=== PATIENT | male | born 1965 | race Caucasian/White ===

== ENCOUNTER 2019-05-18 08:13 | Outpatient (CLI) | payer BC, SELFPAY | END 2019-05-18 08:14 | disposition home or self-care (01) | LOC: ONCMED 08:17 | PROVIDERS: Family Provider Family Medicine; PCP Family Medicine; Visit Provider Internal Medicine Hematology & Oncology | DX: Z45.2 Encounter for adjustment and management of vascular access device (principal) | CPT/HCPCS: 96523 ==

== ENCOUNTER 2019-06-25 09:04 | Outpatient (CLI) | payer BC, SELFPAY | END 2019-06-25 09:05 | disposition home or self-care (01) | LOC: ONCMED 09:06 | PROVIDERS: Family Provider Family Medicine; PCP Family Medicine; Visit Provider Internal Medicine Hematology & Oncology | DX: Z45.2 Encounter for adjustment and management of vascular access device (principal) | CPT/HCPCS: 96523 ==

== ENCOUNTER 2019-08-13 15:53 | Outpatient (CLI) | payer BC, SELFPAY ==
[2019-08-13 18:24] LABS: Carcinoembryonic Antigen 0.7 ng/mL (0.0-4.7)
[2019-08-13 18:35] LABS: Alanine Aminotransferase 31 U/L (0-41); Albumin Level 4.6 g/dL (3.5-5.2); Alkaline Phosphatase 67 IU/L (40-130); Aspartate Amino Transferase 23 U/L (0-40); Blood Urea Nitrogen 13 mg/dL (6-20); Calcium 9.5 mg/dL (8.5-10.5); Carbon Dioxide 23 mmol/L (22-29); Chloride 98 mmol/L (98-107); Glomerular Filtration Rate 77.9 mL/min (90-130); Glucose 176 mg/dL (65-115); Osmolality Calculated 282 mOsm/kg (285-295); Sodium 136 mmol/L (136-145); Total Bilirubin 0.4 mg/dL (0.15-1.2); Total Protein 7.6 g/dL (6.6-8.7)
[2019-08-13 22:30] LABS: Basophils % 0.5 %; Eosinophils % 0.8 %; Hematocrit 43.8 % (42.0-52.0); Hemoglobin 14.4 g/dL (11.7-16.6); Lymphocytes % 26.5 %; Mean Corpuscular HGB Conc 32.9 g/dL (30.0-36.0); Mean Corpuscular Hemoglobin 31.2 pg (28.0-34.0); Mean Corpuscular Volume 94.8 fL (80-94); Mean Platelet Volume 10.5 fL (7.4-10.4); Monocytes # 0.3 10^3/uL (0.2-0.9); Monocytes % 8.9 %; Neutrophils # 2.4 10^3/uL (1.8-7.7); Nucleated Red Blood Cells % 0 %; Platelet Count 233 10^3/cmm (130-400); Red Blood Count 4.62 10^6/uL (4.1-5.3); Red Cell Distribution Width 12.5 % (12.1-15.1); White Blood Count 3.8 10^3/uL (4.0-10.0)
== END 2019-08-13 15:54 | disposition home or self-care (01) ==
PROVIDERS: Family Provider Family Medicine; PCP Family Medicine; Visit Provider Internal Medicine Hematology & Oncology
DX: C20 Malignant neoplasm of rectum (principal); Z45.2 Encounter for adjustment and management of vascular access device
CPT/HCPCS: 36415; 80053; 82378; 85025; 96523

== ENCOUNTER 2019-11-08 09:04 | Outpatient (CLI) | payer BC, SELFPAY ==
[2019-11-08 09:43] LABS: Basophils % 0.5 %; Eosinophils # 0.1 10^3/uL (0.0-0.8); Eosinophils % 1.1 %; Hematocrit 43.1 % (42.0-52.0); Hemoglobin 14.1 g/dL (11.7-16.6); Mean Corpuscular HGB Conc 32.7 g/dL (30.0-36.0); Mean Corpuscular Hemoglobin 31.2 pg (28.0-34.0); Mean Corpuscular Volume 95.4 fL (80-94); Mean Platelet Volume 9.5 fL (7.4-10.4); Monocytes # 0.3 10^3/uL (0.2-0.9); Monocytes % 6.8 %; Neutrophils % 68.4 %; Nucleated Red Blood Cells % 0 %; Platelet Count 209 10^3/cmm (130-400); Red Blood Count 4.52 10^6/uL (4.1-5.3); Red Cell Distribution Width 12.8 % (12.1-15.1); White Blood Count 4.4 10^3/uL (4.0-10.0)
[2019-11-08 10:09] LABS: Carcinoembryonic Antigen 0.9 ng/mL (0.0-4.7)
[2019-11-08 10:21] LABS: Alanine Aminotransferase 37 U/L (0-41); Albumin Level 4.4 g/dL (3.5-5.2); Alkaline Phosphatase 66 IU/L (40-130); Anion Gap 16.3 (5-19); Aspartate Amino Transferase 24 U/L (0-40); Blood Urea Nitrogen 14 mg/dL (6-20); Calcium 9.2 mg/dL (8.5-10.5); Carbon Dioxide 25 mmol/L (22-29); Chloride 99 mmol/L (98-107); Glomerular Filtration Rate 100.4 mL/min (90-130); Glucose 243 mg/dL (65-115); Osmolality Calculated 286 mOsm/kg (285-295); Potassium 4.3 mmol/L (3.5-5.1); Sodium 136 mmol/L (136-145); Total Bilirubin 0.3 mg/dL (0.15-1.2); Total Protein 7.4 g/dL (6.6-8.7)
--- NOTE | 2019-11-08 11:23 | ONC FU_ITS ---
Dr. Jones follow up note Patient: Pedro Soliman Unit #: [id number]: [id number] Dicatated By: Cassandra Jones M.D.Date of Visit:Nov 08, 2019 Onc Med Follow-up/Prog Note History of Present Illness: Mr. Soliman is a 54 -year-old gentleman who was recently diagnosed with rectal polyp. He did have a biopsy of the polyp on 07/04/2017. This showed focal high-grade dysplasia and microscopic focus of invasion. CT scan of chest abdomen pelvis done on 07/04/2017 showed mass lesion that appeared locally confined to the rectum. He did see Dr Efrem Lozano in [place] and subsequently underwent trans-anal excisional biopsy/polypectomy which showed adenocarcinoma high-grade, with trans- mural invasion into perirectal adipose tissue and lymphovascular invasion. The margins clear but distance of invasive carcinoma from closest deep margin was 2 mm. no loss of expression of MMR proteins. Mr Soliman has been offered concurrent therapy with Xeloda and daily radiation. He began his first week of treatment on 09/10/2017. He completed his last radiation and Xeloda treatment on 01/10/2018 He was evaluated by colorectal surgeon at [facility] regarding post chemoradiation evaluation of rectal CA. As per his evaluation there is a no evidence of disease, considering patient's age adjuvant chemotherapy with FOLFOX was recommended along with observation and follow-up MRI scan of pelvis every 3-4 months so patient was started on adjuvant chemotherapy with FOLFOX ???12 on 02/06/2018 and completed on 07/31/18 MRI scan of pelvis done in February 2018 at [facility], as per patient it was normal. 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 MRI of the pelvis from [place] on 11/14/2018 reveals no evidence of recurrent tumor. Recently developed left pelvic pain for which he underwent sigmoidoscopy at [facility] in the last week of January 2019 and done on 02/14/2019 he underwent MRI scan of pelvis which showed no evidence of recurrence of rectal neoplasm. At that time patient was referred to chiropractor for evaluation now left hip pain is improving. Came for follow-up, as per patient last week he did develop left flank pain, went to see his PMD who ordered a renal ultrasound on November 05, 2019 which was a normal study, as per patient he was told at that he has pinched nerve or developing shingles, so he was started on acyclovir, which he is taking now. Also complaining of skin being very sensitive to touch and did notice some rash but no blisters. Denies any melena or hematochezia denies any diarrhea or constipation denies any abdominal pain. As per patient he underwent MRI scan of pelvis and colonoscopy in June 2019 at [place] at that time he was told there was no abnormality seen now he is scheduled for repeat MRI scan of pelvis and colonoscopy on November 22, 2019 at [facility]. Patient denies any fever chills denies nausea or vomiting or jaundice denies any skin rash, denies any trauma to his back. Denies any lower extremity numbness or weakness. Medications: C-1000 1 (1000 mg) Tablet Oral daily, Lisinopril 1 (30 mg) Tablet Oral daily, Vitamin B12 1 Tablet Oral daily Allergies: No Known Allergies. Review of Systems: Review of Systems is not available for this patient. Vital Signs: Performed on Nov 08, 2019 10:51 Height - 70.00 in Temperature - 99.1 F (HIGH) Pulse - 77 /min Respiration - 18 /min BP - 136/92 mm(hg) O2 Sat - 96 % Pain - 0 Performance Status: 0 - Fully active, able to carry on all predisease activities without restrictions. (ECOG) Physical Examination: ENMT - No mouth sores, no thrush, no jaundice, Respiratory - Lungs are clear, Cardiovascular - Regular rate and rhythm of heart, Abdomen - Soft, bowel sounds present, Left flank shows macular rash but no blisters and skin is sensitive to touch, Extremities - No visible edema. Lab/Imaging: Test performed on Aug 13, 2019 16:10 Sodium 136 mmol/L Potassium 4.0 mmol/L Chloride 98 mmol/L CO2 23 mmol/L Anion Gap 19.0 BUN 13 mg/dL Creatinine 1.0 mg/dL Cr Clearance (Est) 118.6500 mL/min eGFR 77.9 mL/min Glucose 176 mg/dL Calcium 9.5 mg/dL Protein, Total 7.6 g/dL Albumin 4.6 g/dL Globulin 3.0 g/dL Bilirubin, Total 0.4 mg/dL ALT (SGPT) 31 U/L AST (SGOT) 23 U/L Alkaline Phosphatase 67 IU/L WBC 3.8 10 3/uL RBC 4.62 10 6/uL HGB 14.4 g/dL HCT 43.8 % MCV 94.8 fL MCH 31.2 pg MCHC 32.9 g/dL RDW 12.5 % Platelet Count 233 10 3/cmm MPV 10.5 fL Neutrophils 2.4 10 3/uL Lymphocytes 1.0 10 3/uL Monocytes 0.3 10 3/uL Eosinophils 0.0 10 3/uL Basophils 0.0 10 3/uL Neutrophil % 63.0 % Lymphocyte % 26.5 % Monocyte % 8.9 % Eosinophil % 0.8 % Basophils % 0.5 % CEA 0.7 ng/mL Impression: 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 Postop urinary retention s/p Allison cath now removed-retention resolved. s/p concurrent therapy with Xeloda and radiation therapy. 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 No lymphadenopathy New diffuse bone marrow heterogenicity, which is likely related to red bone marrow reconversion. Mr Barroso recently had elevation of his creatinine after having a followup colonoscopy and MRI at [place]. His creatinine has returned to normal today. Plan: Discussed with patient regarding his labs white blood count 4.4 hemoglobin 14.1 crit 43.1 platelets 209,000 CMP within normal limit except glucose 243 Clinically, patient is doing reasonably well but concerned about left flank pain, which is under control with Tylenol and Motrin prescribed by his PMD and also taking acyclovir for possible shingles as his skin and left flank area is sensitive and he did notice some skin lesions but no blisters. Patient is being followed by PMD regarding his left flank pain or discomfort. Patient is scheduled to go to [facility] on November 22, 2023 follow-up MRI scan of pelvis as well as colonoscopy. His lab work-up looks reasonable and he will return to clinic in 4 months with CBC CMP Signed By: Cassandra Jones M.D. <<Signature on File>>
== END 2019-11-08 09:05 | disposition home or self-care (01) ==
PROVIDERS: PCP Family Medicine; Visit Provider Internal Medicine Hematology & Oncology
DX: Z08 Encounter for follow-up examination after completed treatment for malignant neoplasm (principal); Z85.048 Personal history of other malignant neoplasm of rectum, rectosigmoid junction, and anus; R10.9 Unspecified abdominal pain; K75.81 Nonalcoholic steatohepatitis (NASH); Z92.3 Personal history of irradiation; Z92.21 Personal history of antineoplastic chemotherapy; Z79.899 Other long term (current) drug therapy
CPT/HCPCS: 80053; 82378; 85025; G0463

== ENCOUNTER → 2020-02-20 17:39 | Outpatient (BNVA) | payer BC, SELFPAY | PROVIDERS: PCP Family Medicine; Visit Provider Dermatology | DX: D48.9 Neoplasm of uncertain behavior, unspecified (principal) | CPT/HCPCS: 88304 ==

== ENCOUNTER 2020-03-11 15:29 | Outpatient (CLI) | payer BC, SELFPAY ==
[2020-03-11 15:58] LABS: Basophils % 0.7 %; Eosinophils # 0.1 10^3/uL (0.0-0.8); Eosinophils % 1.1 %; Hematocrit 43.5 % (42.0-52.0); Hemoglobin 14.2 g/dL (11.7-16.6); Lymphocytes # 1.4 10^3/uL (0.8-4.8); Lymphocytes % 30.9 %; Mean Corpuscular HGB Conc 32.6 g/dL (30.0-36.0); Mean Corpuscular Hemoglobin 30.7 pg (28.0-34.0); Mean Platelet Volume 9.8 fL (7.4-10.4); Monocytes # 0.4 10^3/uL (0.2-0.9); Monocytes % 8.3 %; Neutrophils # 2.63 10^3/uL (1.8-7.7); Neutrophils % 58.8 %; Nucleated Red Blood Cells % 0 %; Platelet Count 239 10^3/cmm (130-400); Red Blood Count 4.63 10^6/uL (4.1-5.3); Red Cell Distribution Width 12.8 % (12.1-15.1); White Blood Count 4.5 10^3/uL (4.0-10.0)
[2020-03-11 16:26] LABS: Alanine Aminotransferase 30 U/L (0-41); Albumin Level 4.5 g/dL (3.5-5.2); Alkaline Phosphatase 71 IU/L (40-130); Aspartate Amino Transferase 19 U/L (0-40); Blood Urea Nitrogen 14 mg/dL (6-20); Calcium 9.2 mg/dL (8.5-10.5); Carbon Dioxide 28 mmol/L (22-29); Chloride 101 mmol/L (98-107); Glomerular Filtration Rate 87.6 mL/min (90-130); Glucose 131 mg/dL (65-115); Osmolality Calculated 286 mOsm/kg (285-295); Sodium 137 mmol/L (136-145); Total Bilirubin 0.3 mg/dL (0.15-1.2); Total Protein 7.5 g/dL (6.6-8.7)
== END 2020-03-11 15:30 | disposition home or self-care (01) ==
LOC: ONCMED 15:31
PROVIDERS: PCP Family Medicine; Visit Provider Internal Medicine Hematology & Oncology
DX: C20 Malignant neoplasm of rectum (principal)
CPT/HCPCS: 36415; 80053; 85025

== ENCOUNTER 2020-03-13 05:38 | Outpatient (CLI) | payer BC, SELFPAY ==
--- NOTE | 2020-03-13 08:49 | ONC FU_ITS ---
Dr. Jones follow up note Patient: Pedro Soliman < Unit #: [id number]: 1965 Dicatated By: Cassandra Jones M.D.Date of Visit:Mar 13, 2020 Onc Med Follow-up/Prog Note History of Present Illness: Mr. Soliman is a 54 -year-old gentleman who was recently diagnosed with rectal polyp. He did have a biopsy of the polyp on 07/04/2017. This showed focal high-grade dysplasia and microscopic focus of invasion. CT scan of chest abdomen pelvis done on 07/04/2017 showed mass lesion that appeared locally confined to the rectum. He did see Dr Efrem Lozano in [place] and subsequently underwent trans-anal excisional biopsy/polypectomy which showed adenocarcinoma high-grade, with trans- mural invasion into perirectal adipose tissue and lymphovascular invasion. The margins clear but distance of invasive carcinoma from closest deep margin was 2 mm. no loss of expression of MMR proteins. Mr Soliman has been offered concurrent therapy with Xeloda and daily radiation. He began his first week of treatment on 09/10/2017. He completed his last radiation and Xeloda treatment on 01/10/2018 He was evaluated by colorectal surgeon at [facility] regarding post chemoradiation evaluation of rectal CA. As per his evaluation there is a no evidence of disease, considering patient's age adjuvant chemotherapy with FOLFOX was recommended along with observation and follow-up MRI scan of pelvis every 3-4 months so patient was started on adjuvant chemotherapy with FOLFOX ???12 on 02/06/2018 and completed on 07/31/18 MRI scan of pelvis done in February 2018 at [facility], as per patient it was normal. 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 MRI of the pelvis from [place] on 11/14/2018 reveals no evidence of recurrent tumor. Recently developed left pelvic pain for which he underwent sigmoidoscopy at [facility] in the last week of January 2019 and done on 02/14/2019 he underwent MRI scan of pelvis which showed no evidence of recurrence of rectal neoplasm. At that time patient was referred to chiropractor for evaluation now left hip pain is improving. As per patient he underwent MRI scan of pelvis and colonoscopy in June 2019 at [place] at that time he was told there was no abnormality seen , And then follow-up MRI scan of pelvis and limited endoscopy was done in November 2019 at [place], as per patient there was no abnormality seen and now scheduled for MRI scan of pelvis and endoscopy In April 2020 at [place] Came for follow-up, denies any specific complaints, no fever chills, no nausea or vomiting, no diarrhea or constipation, no abdominal pain, no jaundice, appetite is good, patient missed couple of monthly port maintenance. Medications: C-1000 1 (1000 mg) Tablet Oral daily, Lisinopril 1 (30 mg) Tablet Oral daily Allergies: No Known Allergies. Review of Systems: Constitutional - Energy level is good. Appetite is fair and weight is stable. No fever, chills, hot flashes, or night sweats, ENMT - Patient has no sinus congestion/drainage. No mouth sores. No sore throat or difficulty swallowing, Hematologic/Lymphatic - No abnormal bruising or bleeding, Respiratory - No shortness of breath. No cough. No pleuritic pain or hemoptysis, Cardiovascular - No angina pain. No palpitations, Gastrointestinal - No nausea or vomiting. No heartburn or acid reflux. No diarrhea or constipation. No blood in the stool or black stool, Genitourinary (M) - No dysuria or hematuria. No urinary frequency. No urgency or incontinence, Musculoskeletal - Positive for back pain, Integumentary - denies skin rash or lesions, Neurologic - No headache or dizziness. No numbness/paresthesias or other focal neurologic symptoms, Psychiatric - No anxiety or depression. No insomnia. Vital Signs: Performed on Mar 13, 2020 08:08 Height - 70.00 in Weight - 223.6 lbs (HIGH) BSA - 2.19 sq.m BMI - 32.08 (HIGH) Temperature - 98.1 F (LOW) Pulse - 60 /min Respiration - 18 /min BP - 158/97 mm(hg) (HIGH) O2 Sat - 98 % Pain - 0 Performance Status: 0 - Fully active, able to carry on all predisease activities without restrictions. (ECOG) Physical Examination: ENMT - No mouth sores, no thrush, no jaundice, Respiratory - Lungs are clear to auscultation, Cardiovascular - Regular rate and rhythm of heart, Abdomen - Soft, bowel sounds present no focal tenderness, Extremities - No visible edema. Lab/Imaging: Test performed on Mar 11, 2020 15:40 Sodium 137 mmol/L Potassium 4.0 mmol/L Chloride 101 mmol/L CO2 28 mmol/L Anion Gap 12.0 BUN 14 mg/dL Creatinine 0.9 mg/dL Cr Clearance (Est) 130.3100 mL/min eGFR 87.6 mL/min Glucose 131 mg/dL Osmolality - Calculated 286 mOsm/kg Calcium 9.2 mg/dL Protein, Total 7.5 g/dL Albumin 4.5 g/dL Globulin 3.0 g/dL Bilirubin, Total 0.3 mg/dL ALT (SGPT) 30 U/L AST (SGOT) 19 U/L Alkaline Phosphatase 71 IU/L WBC 4.5 10 3/uL RBC 4.63 10 6/uL HGB 14.2 g/dL HCT 43.5 % MCV 94.0 fL MCH 30.7 pg MCHC 32.6 g/dL RDW 12.8 % Platelet Count 239 10 3/cmm MPV 9.8 fL Neutrophils 2.63 10 3/uL Lymphocytes 1.4 10 3/uL Monocytes 0.4 10 3/uL Eosinophils 0.1 10 3/uL Basophils 0.0 10 3/uL Neutrophil % 58.8 % Lymphocyte % 30.9 % Monocyte % 8.3 % Eosinophil % 1.1 % Basophils % 0.7 % NRBC % 0 % Test performed on Nov 08, 2019 09:20 CEA 0.9 ng/mL Impression: 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 Postop urinary retention s/p Allison cath now removed-retention resolved. s/p concurrent therapy with Xeloda and radiation therapy. 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 No lymphadenopathy New diffuse bone marrow heterogenicity, which is likely related to red bone marrow reconversion. Mr Chio recently had elevation of his creatinine after having a followup colonoscopy and MRI at [place]. His creatinine has returned to normal today. Plan: Discussed with patient regarding his labs from March 11, 2020 shows white blood count 4.5 hemoglobin 14.2 hematocrit 43.5 platelets 239,000 CMP within normal limits Clinically, patient is doing well with no signs symptom suggestive of recurrence of disease, now being followed up with MRI scan of pelvis and lymphatic endoscopy at [place] on 6 monthly basis, as per patient his last MRI scan of pelvis and endoscopy done in November 2019 showed no evidence of disease and now scheduled for follow-up MRI scan of pelvis and endoscopy in April 2020. His follow-up lab shows normal values. Patient was advised to continue with monthly port maintenance and if his follow-up MRI scan/endoscopy done in April shows no abnormality, then he can consider port removal if he wishes. Return to clinic in 6 months with CBC CMP. Signed By: Cassandra Jones M.D. <<Signature on File>>
== END 2020-03-13 05:39 | disposition home or self-care (01) ==
LOC: ONCMED 05:39
PROVIDERS: PCP Family Medicine; Visit Provider Internal Medicine Hematology & Oncology
DX: Z08 Encounter for follow-up examination after completed treatment for malignant neoplasm (principal); Z85.048 Personal history of other malignant neoplasm of rectum, rectosigmoid junction, and anus; Z92.3 Personal history of irradiation; Z92.21 Personal history of antineoplastic chemotherapy
CPT/HCPCS: G0463

== ENCOUNTER 2020-09-11 09:11 | Outpatient (CLI) | payer BC, SELFPAY ==
[2020-09-11 09:48] LABS: Basophils % 0.4 %; Eosinophils % 0.4 %; Hematocrit 45.6 % (42.0-52.0); Hemoglobin 14.9 g/dL (11.7-16.6); Lymphocytes # 1.1 10^3/uL (0.8-4.8); Lymphocytes % 25.2 %; Mean Corpuscular HGB Conc 32.7 g/dL (30.0-36.0); Mean Corpuscular Hemoglobin 30.2 pg (28.0-34.0); Mean Corpuscular Volume 92.3 fL (80-94); Mean Platelet Volume 9.6 fL (7.4-10.4); Monocytes # 0.3 10^3/uL (0.2-0.9); Monocytes % 7.1 %; Neutrophils # 2.98 10^3/uL (1.8-7.7); Neutrophils % 66.5 %; Nucleated Red Blood Cells % 0 %; Platelet Count 231 10^3/cmm (130-400); Red Blood Count 4.94 10^6/uL (4.1-5.3); Red Cell Distribution Width 12.2 % (12.1-15.1); White Blood Count 4.5 10^3/uL (4.0-10.0)
[2020-09-11 10:02] LABS: Alanine Aminotransferase 26 U/L (0-41); Albumin Level 4.5 g/dL (3.5-5.2); Alkaline Phosphatase 63 IU/L (40-130); Anion Gap 14.2 (5-19); Aspartate Amino Transferase 18 U/L (0-40); Blood Urea Nitrogen 12 mg/dL (6-20); Calcium 8.7 mg/dL (8.5-10.5); Carbon Dioxide 25 mmol/L (22-29); Chloride 103 mmol/L (98-107); Globulin 2.9 g/dL (1.3-4.6); Glomerular Filtration Rate 116.7 mL/min (90-130); Glucose 143 mg/dL (65-115); Osmolality Calculated 288 mOsm/kg (285-295); Potassium 4.2 mmol/L (3.5-5.1); Sodium 138 mmol/L (136-145); Total Bilirubin 0.5 mg/dL (0.15-1.2); Total Protein 7.4 g/dL (6.6-8.7)
--- NOTE | 2020-09-12 08:02 | ONC FU_ITS ---
Dr. Jones follow up note Patient: Pedro Soliman Unit #: [id number]: 1965 Dicatated By: Cassandra Jones M.D.Date of Visit:September 11, 2020 Onc Med Follow-up/Prog Note History of Present Illness: Mr. Soliman is a 55 -year-old gentleman who was recently diagnosed with rectal polyp. He did have a biopsy of the polyp on 07/04/2017. This showed focal high-grade dysplasia and microscopic focus of invasion. CT scan of chest abdomen pelvis done on 07/04/2017 showed mass lesion that appeared locally confined to the rectum. He did see Dr Efrem Lozano in [place] and subsequently underwent trans-anal excisional biopsy/polypectomy which showed adenocarcinoma high-grade, with trans- mural invasion into perirectal adipose tissue and lymphovascular invasion. The margins clear but distance of invasive carcinoma from closest deep margin was 2 mm. no loss of expression of MMR proteins. Mr Soliman has been offered concurrent therapy with Xeloda and daily radiation. He began his first week of treatment on 09/10/2017. He completed his last radiation and Xeloda treatment on 01/10/2018 He was evaluated by colorectal surgeon at [facility] regarding post chemoradiation evaluation of rectal CA. As per his evaluation there is a no evidence of disease, considering patient's age adjuvant chemotherapy with FOLFOX was recommended along with observation and follow-up MRI scan of pelvis every 3-4 months so patient was started on adjuvant chemotherapy with FOLFOX ???12 on 02/06/2018 and completed on 07/31/18 MRI scan of pelvis done in February 2018 at [facility], as per patient it was normal. 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 MRI of the pelvis from [place] on 11/14/2018 reveals no evidence of recurrent tumor. Recently developed left pelvic pain for which he underwent sigmoidoscopy at [facility] in the last week of January 2019 and done on 02/14/2019 he underwent MRI scan of pelvis which showed no evidence of recurrence of rectal neoplasm. At that time patient was referred to chiropractor for evaluation now left hip pain is improving. As per patient he underwent MRI scan of pelvis and colonoscopy in June 2019 at [place] at that time he was told there was no abnormality seen , And then follow-up MRI scan of pelvis and limited endoscopy was done in November 2019 at [place], as per patient there was no abnormality seen As per patient he went to [place] in April 2020 and had a complete colonoscopy and the polyp was removed and biopsy report came back negative and also had MRI scan of the pelvis and that showed no recurrence of disease. Now scheduled for sigmoidoscopy and MRI scan of pelvis in October 2020 Came for follow-up, denies any specific complaints, no fever chills, no nausea or vomiting, no diarrhea constipation, no melena or hematochezia, no jaundice, Patient is also complaining of persistent posterior medial thigh pain/discomfort, initially off and on even before he underwent treatment for low rectal cancer which include neoadjuvant chemoradiation and transanal resection. But recently this pain/discomfort is somewhat more progressive and as per patient this pain did improve after resection of low rectal malignancy but now somewhat progressive. Patient denies any lower back pain, denies any focal weakness denies any urine or stool incontinence. Medications: C-1000 1 (1000 mg) Tablet Oral daily, Lisinopril 1 (30 mg) Tablet Oral daily Allergies: No Known Allergies. Review of Systems: Review of Systems is not available for this patient. Vital Signs: Performed on September 11, 2020 14:44 Height - 70.00 in Weight - 223 lbs (LOW) BSA - 2.19 sq.m BMI - 32.00 (HIGH) Temperature - 98.6 F Pulse - 114 /min (HIGH) Respiration - 18 /min BP - 137/98 mm(hg) O2 Sat - 97 % Pain - 0 Fatigue - 0 Performance Status: 0 - Fully active, able to carry on all predisease activities without restrictions. (ECOG) Physical Examination: ENMT - No mouth sores, no thrush, no jaundice, Respiratory - Lungs are clear to auscultation, Cardiovascular - Regular rate and rhythm of heart, Abdomen - Soft, bowel sounds present, Extremities - No visible edema. Lab/Imaging: Most recent lab results are not available for this patient. 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 Postop urinary retention s/p Allison cath now removed-retention resolved. s/p concurrent therapy with Xeloda and radiation therapy. 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 No lymphadenopathy New diffuse bone marrow heterogenicity, which is likely related to red bone marrow reconversion. Mr Barroso recently had elevation of his creatinine after having a followup colonoscopy and MRI at [place].Colonoscopy/MRI pelvis done in April 2020 at [place] showed no evidence of recurrence of disease, one polyp was removed and as per patient it was benign. Plan: Discussed with patient regarding his labs white blood count 4.5 hemoglobin 14.9 hematocrit 45.6 platelets 231,000 CMP within normal limits Clinically, patient doing well with no new signs symptom suggestive of recurrence of disease, patient is being followed at GI surgical oncologist at [place] with follow-up endoscopic exam as well as MRI scan of pelvis as per patient his last colonoscopy and MRI pelvis was done in April 2020 which showed no evidence of disease and next 1 is scheduled in October 2020. And his lab work-up done today is within normal range. Other concern patient has this persistent/progressive medial posterior thigh pain/discomfort, as per patient this was there even before surgery but at that time he was off and on and it did improve after transanal resection of low rectal malignancy but now again become somewhat progressive, patient said he will discuss with his surgeon at [place] as he was concerned about recurrence of disease although his evaluation done in April 2020 did not show any evidence of recurrence of disease and patient has no signs or symptoms suggestive of progressive disease. Patient return to clinic in 6 months with CBC CMP in the meantime he will continue monthly port maintenance Signed By: Cassandra Jones M.D. <<Signature on File>>
== END 2020-09-11 09:12 | disposition home or self-care (01) ==
LOC: ONCMED 09:13
PROVIDERS: PCP Family Medicine; Visit Provider Internal Medicine Hematology & Oncology
DX: C20 Malignant neoplasm of rectum (principal); K75.81 Nonalcoholic steatohepatitis (NASH); R33.9 Retention of urine, unspecified; G62.0 Drug-induced polyneuropathy; T45.1X5A Adverse effect of antineoplastic and immunosuppressive drugs, initial encounter; D53.9 Nutritional anemia, unspecified; K62.1 Rectal polyp; Z79.899 Other long term (current) drug therapy; Z92.21 Personal history of antineoplastic chemotherapy; Z92.3 Personal history of irradiation
CPT/HCPCS: 36415; 80053; 85025; 99214

== ENCOUNTER 2021-02-16 05:55 | Day surgery (SDC) | payer BC, SELFPAY ==
[2021-02-13 13:40] VITALS: BMI 31.5
[2021-02-16 06:08] VITALS: BP 142/92; PULSE 68; RESP 17; TEMP 36.3; O2SAT 96
[2021-02-16 06:48] VITALS: BP 153/91; PULSE 55; RESP 16; O2SAT 99
--- NOTE | 2021-02-16 06:48 | W.PM.OPSUD ---
Surgery/Procedure H&P Update DATE OF PROCEDURE: February 16, 2021 DATE H&P PERFORMED: 02/09/21 H&P UPDATE INFORMATION: I have reviewed H&P completed within last 30 days, I have examined patient prior to procedure and No changes to prior documentation PREOP DIAGNOSIS: Port removal PLANNED PROCEDURE: Operation Date: 02/16/21 07:00 Proposed Procedures p Portacath Removal(Not Applicable) - Sudeep Dumont MD
[2021-02-16 07:00] VITALS: BP 157/95; PULSE 55; RESP 16; O2SAT 100
[2021-02-16 07:05] VITALS: BP 149/89; PULSE 64; RESP 16; O2SAT 99
[2021-02-16 07:10] VITALS: BP 150/86; PULSE 58; RESP 14; O2SAT 99
--- NOTE | 2021-02-16 07:13 | PM.OP ---
Operative Report Date of procedure: February 16, 2021 Pre-op Diagnosis: Rectal cancer, requiring port removal Post-op diagnosis: same Procedure Done: Removal of Port-A-Cath from the left subclavian vein Pathology: none sent Surgeon: Sudeep Dumont Anesthesia: Local Condition: stable Disposition: PACU Procedure: Patient was taken to the operating room and her right chest was prepped and draped in a sterile manner. 20 mL of 1% lidocaine with 0.5% Marcaine was infiltrated around the MediPort and catheter in the left subclavian vein. Using a 15 blade the previous incision was opened, the subcutaneous tissue was divided using electrocautery and MediPort along the catheter was dissected free from the surrounding subcutaneous tissue and removed entirely. The wound was irrigated with saline, hemostasis ensured with electrocautery and subcutaneous tissue was approximated using 3-0 Vicryl suture and skin was closed using running subcuticular 4-0 Monocryl suture. The patient was transferred to the recovery room in stable condition.
[2021-02-16 07:15] VITALS: BP 114/75; PULSE 58; RESP 17; TEMP 36.3; O2SAT 97
== END 2021-02-16 07:25 | disposition home or self-care (01) ==
PROVIDERS: PCP Family Medicine; Visit Provider Surgery
PROC: (CPT 36589; principal; 2021-02-16 07:00)
DX: C20 Malignant neoplasm of rectum (principal); I10 Essential (primary) hypertension
CPT/HCPCS: 36590; J3490

== ENCOUNTER 2021-03-24 07:54 | Outpatient (CLI) | payer BC, SELFPAY ==
[2021-03-24 08:35] LABS: Basophils % 0.5 %; Eosinophils # 0.1 10^3/uL (0.0-0.8); Eosinophils % 1.2 %; Hematocrit 44.1 % (42.0-52.0); Hemoglobin 14.2 g/dL (11.7-16.6); Lymphocytes # 1.1 10^3/uL (0.8-4.8); Lymphocytes % 25.6 %; Mean Corpuscular HGB Conc 32.2 g/dL (30.0-36.0); Mean Corpuscular Volume 93.2 fl (80-94); Mean Platelet Volume 9.5 fL (7.4-10.4); Monocytes # 0.4 10^3/uL (0.2-0.9); Monocytes % 9.1 %; Neutrophils # 2.65 10^3/uL (1.8-7.7); Neutrophils % 63.4 %; Nucleated Red Blood Cells % 0 %; Platelet Count 200 10^3/cmm (130-400); Red Blood Count 4.73 10^6/uL (4.1-5.3); Red Cell Distribution Width 12.4 % (12.1-15.1); White Blood Count 4.2 10^3/uL (4.0-10.0)
[2021-03-24 08:51] LABS: Alanine Aminotransferase 23 U/L (0-41); Albumin Level 4.3 g/dL (3.5-5.2); Alkaline Phosphatase 65 IU/L (40-130); Anion Gap 12.7 (5-19); Aspartate Amino Transferase 15 U/L (0-40); Blood Urea Nitrogen 15 mg/dL (6-20); Calcium 8.4 mg/dL (8.5-10.5); Carbon Dioxide 26 mmol/L (22-29); Chloride 106 mmol/L (98-107); Globulin 2.6 g/dL (1.3-4.6); Glucose 132 mg/dL (65-115); Osmolality Calculated 293 mOsm/kg (285-295); Potassium 4.7 mmol/L (3.5-5.1); Sodium 140 mmol/L (136-145); Total Bilirubin 0.3 mg/dL (0.15-1.2); Total Protein 6.9 g/dL (6.6-8.7)
--- NOTE | 2021-03-24 15:26 | ONC FU_ITS ---
Dr. Jones follow up note Patient: Pedro Soliman Unit #: [id number]: 1965 Dicatated By: Cassandra Jones M.D.Date of Visit:Mar 24, 2021 Onc Med Follow-up/Prog Note History of Present Illness: Mr. Soliman is a 55 -year-old gentleman who was recently diagnosed with rectal polyp. He did have a biopsy of the polyp on 07/04/2017. This showed focal high-grade dysplasia and microscopic focus of invasion. CT scan of chest abdomen pelvis done on 07/04/2017 showed mass lesion that appeared locally confined to the rectum. He did see Dr Efrem Lozano in [place] and subsequently underwent trans-anal excisional biopsy/polypectomy which showed adenocarcinoma high-grade, with trans- mural invasion into perirectal adipose tissue and lymphovascular invasion. The margins clear but distance of invasive carcinoma from closest deep margin was 2 mm. no loss of expression of MMR proteins. Mr Soliman has been offered concurrent therapy with Xeloda and daily radiation. He began his first week of treatment on 09/10/2017. He completed his last radiation and Xeloda treatment on 01/10/2018 He was evaluated by colorectal surgeon at [facility] regarding post chemoradiation evaluation of rectal CA. As per his evaluation there is a no evidence of disease, considering patient's age adjuvant chemotherapy with FOLFOX was recommended along with observation and follow-up MRI scan of pelvis every 3-4 months so patient was started on adjuvant chemotherapy with FOLFOX ???12 on 02/06/2018 and completed on 07/31/18 MRI scan of pelvis done in February 2018 at [facility], as per patient it was normal. 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 MRI of the pelvis from [facility] [place] on 11/14/2018 reveals no evidence of recurrent tumor. Recently developed left pelvic pain for which he underwent sigmoidoscopy at [facility] in the last week of January 2019 and done on 02/14/2019 he underwent MRI scan of pelvis which showed no evidence of recurrence of rectal neoplasm. At that time patient was referred to chiropractor for evaluation now left hip pain is improving. As per patient he underwent MRI scan of pelvis and colonoscopy in June 2019 at [facility] at that time he was told there was no abnormality seen , And then follow-up MRI scan of pelvis and limited endoscopy was done in November 2019 at [facility] [place], as per patient there was no abnormality seen and now scheduled for MRI scan of pelvis and endoscopy In April 2020 at [facility] As per patient he went to [facility] in April 2020 and had a complete colonoscopy and the polyp was removed and biopsy report came back negative and also had MRI scan of the pelvis and that showed no recurrence of disease. Now scheduled for sigmoidoscopy and MRI scan of pelvis in October 2020 Came for follow-up, denies any specific complaints, no fever chills, no nausea or vomiting, no diarrhea constipation, no melena hematochezia no hemoptysis hematemesis, no abdominal pain, as per patient his rectal/anal pain has resolved, in November 2020, patient went to [facility] surgical oncology for follow-up, as per patient MRI scan of the pelvis and rectal exam was performed and there was no evidence of recurrence of disease, now scheduled to go back for evaluation in April 2021 Medications: C-1000 1 (1000 mg) Tablet Oral daily, Lisinopril 1 (30 mg) Tablet Oral daily Allergies: No Known Allergies. Review of Systems: Review of Systems is not available for this patient. Vital Signs: Performed on Mar 24, 2021 14:04 Height - 70.00 in Weight - 222 lbs (LOW) BSA - 2.18 sq.m BMI - 31.85 (HIGH) Temperature - 98.3 F (LOW) Pulse - 63 /min Respiration - 18 /min BP - 132/86 mm(hg) O2 Sat - 97 % Pain - 0 Fatigue - 2 Performance Status: 0 - Fully active, able to carry on all predisease activities without restrictions. (ECOG) Physical Examination: ENMT - Sinuses are nontender. No oral exudates, ulcers, masses, thrush or mucositis. Oropharynx clear. Tongue normal, Respiratory - Lungs are clear to auscultation, Cardiovascular - Regular rate and rhythm of heart, Abdomen - Soft, bowel sounds present, Extremities - No visible edema. Lab/Imaging: Most recent lab results are not available for this patient. 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 Postop urinary retention s/p Allison cath now removed-retention resolved. s/p concurrent therapy with Xeloda and radiation therapy. 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 No lymphadenopathy New diffuse bone marrow heterogenicity, which is likely related to red bone marrow reconversion. Mr Barroso recently had elevation of his creatinine after having a followup colonoscopy and MRI at [facility].Colonoscopy/MRI pelvis done in April 2020 at [facility] showed no evidence of recurrence of disease, one polyp was removed and as per patient it was benign. Plan: Discussed with patient regarding his labs white blood count 4.2 hemoglobin 14.2 hematocrit 44.1 platelets 200,000 CMP within normal limits except glucose 132 Clinically, patient is doing well with no new signs symptom suggestive of recurrence of disease, and November 2020 patient underwent MRI scan of the pelvis and rectal exam at [facility] [place] [facility], as per patient there is no evidence of recurrence of disease. And today's lab work-up is also within normal range, patient will return to clinic in July with CBC CMP and CEA. Signed By: Cassandra Jones M.D. <<Signature on File>>
== END 2021-03-24 07:55 | disposition home or self-care (01) ==
LOC: ONCMED 07:56
PROVIDERS: PCP Family Medicine; Visit Provider Internal Medicine Hematology & Oncology
DX: Z08 Encounter for follow-up examination after completed treatment for malignant neoplasm (principal); Z85.048 Personal history of other malignant neoplasm of rectum, rectosigmoid junction, and anus; K75.81 Nonalcoholic steatohepatitis (NASH); Z79.899 Other long term (current) drug therapy; Z92.21 Personal history of antineoplastic chemotherapy; Z92.3 Personal history of irradiation
CPT/HCPCS: 36415; 80053; 85025; 99214

== ENCOUNTER 2022-09-24 07:51 | Outpatient (CLI) | payer BC, SELFPAY ==
--- NOTE | 2022-09-24 08:01 | CT_ITS ---
WS: [id number] CT CHEST, ABDOMEN AND PELVIS WITH CONTRAST HISTORY: RECTAL CANCER TECHNIQUE: Contiguous 5 mm axial imaging performed through the chest, abdomen and pelvis with IV cont rast, oral contrast has been provided. Coronal and sagittal reformats chest. Coronal and sagittal ref ormats through the abdomen and pelvis. All CT scans at [facility] use at least one of these d ose optimization techniques: automated exposure control; mA and/or kV adjustment per patient size (in cludes targeted exams where dose is matched to clinical indication); or iterative reconstruction. CONTRAST: Omnipaque 350; 100 mL IV. DLP: 1180.55 mGy.cm COMPARISON: 11/14/2017 CT abdomen and pelvis. Chest CT: Lungs are well-aerated. 3 mm nodule at the LEFT lung base was also present in 2018. No susp icious masses or nodules. No pneumonia. Mild atherosclerosis aorta. Normal size aorta and pulmonary a rtery. No pericardial or pleural effusions. No mediastinal or hilar adenopathy. Negative chest wall. Abdomen CT: Normal size liver with diffuse moderate hepatic steatosis. No mass or metastatic lesions. Normal portal vein. Normal spleen. Normal pancreas. Prior cholecystectomy. No adrenal mass. No renal obstruction. There are bilateral cortical, too small to characterize hypodensities. No solid mass. M ajority of these hypodensities were also noted in 2018. Normal aorta. No ascites or adenopathy. Marian lly distended stomach and small bowel. No obstructive pattern. Normal appendix. Numerous diverticula in the descending and sigmoid colon. No acute diverticulitis. Mild diverticular burden. No rectal mas s. No perirectal or mesial rectal mass or soft tissue stranding. No pelvic adenopathy. Pelvic CT: No free fluid or adenopathy. Normally distended urinary bladder. No enhancing nodules. Nor mal prostate. No inguinal lymph nodes. No destructive bone lesions. CT/CT chest abdpel w/*[id number] IMPRESSION: 1. No evidence for metastatic disease or adenopathy within the chest, abdomen or pelvis. 2. No abnormality in the mesial rectal fat or inguinal lymph nodes. 3. Prior cholecystectomy. 4. Mild distal colon diverticulosis without acute diverticulitis.
[2022-09-24] MEDS: iohexol 350 mg/mL 500 mL Btl (per mL) IV (09:04)
== END 2022-09-24 07:52 | disposition home or self-care (01) ==
PROVIDERS: PCP Family Medicine; Visit Provider Surgery
DX: C20 Malignant neoplasm of rectum (principal); Z90.49 Acquired absence of other specified parts of digestive tract; K57.30 Diverticulosis of large intestine without perforation or abscess without bleeding
CPT/HCPCS: 71260; 74177; Q9967

== ENCOUNTER 2023-12-16 07:57 | Oncology outpatient (recurring) (ONCR) | payer BC, SELFPAY ==
[2023-12-16 09:16] LABS: Prostate Specific Antigen < 0.014 ng/mL (0-4)
== END 2024-01-07 23:55 | disposition home or self-care (01) ==
LOC: ONCMED 07:58
PROVIDERS: PCP Family Medicine; Visit Provider Internal Medicine Medical Oncology
DX: C20 Malignant neoplasm of rectum (principal); C61 Malignant neoplasm of prostate
CPT/HCPCS: 36415; 84153

== ENCOUNTER 2024-11-08 12:05 | Oncology outpatient (recurring) (ONCR) | payer BC, SELFPAY ==
[2024-11-08 12:31] LABS: Hematocrit 43.5 % (37-53); Hemoglobin 14.40 g/dL (11.27-16.99); Mean Corpuscular HGB Conc 33.1 g/dL (30-55); Mean Corpuscular Hemoglobin 29.5 pg (27-33); Mean Corpuscular Volume 89.1 fl (82-101); Nucleated Red Blood Cells % 0 %; Platelet Count 212 10^3/cmm (157-399); Red Blood Count 4.88 10^6/uL (3.85-5.65); White Blood Count 3.54 10^3/uL (3.29-11.43)
[2024-11-08 12:54] LABS: Carcinoembryonic Antigen 1.1 ng/mL (0.0-4.7)
[2024-11-08 12:56] LABS: Prostate Specific Antigen < 0.014 ng/mL (0-4)
[2024-11-08 13:05] LABS: Alanine Aminotransferase 26 U/L (0-41); Albumin Level 4.4 g/dL (3.5-5.2); Alkaline Phosphatase 69 U/L (40-130); Anion Gap 19.2 (5-19); Aspartate Amino Transferase 18 U/L (0-40); Blood Urea Nitrogen 12 mg/dL (8-23); Calcium 9.7 mg/dL (8.5-10.5); Carbon Dioxide 21 mmol/L (22-29); Chloride 101 mmol/L (98-107); Creatinine Clr Calc Pharmacy 92.0098; Globulin 3.2 g/dL (1.3-4.6); Glucose 133 mg/dL (65-115); Osmolality Calculated 286 mOsm/kg (285-295); Potassium 4.2 mmol/L (3.5-5.1); Sodium 137 mmol/L (136-145); Total Protein 7.6 g/dL (6.6-8.7)
== END 2024-12-06 23:59 | disposition home or self-care (01) ==
PROVIDERS: PCP Family Medicine; Visit Provider Internal Medicine
DX: C61 Malignant neoplasm of prostate (principal); C20 Malignant neoplasm of rectum
CPT/HCPCS: 36415; 80053; 82378; 84153; 85025

== ENCOUNTER 2025-03-07 13:00 | Oncology outpatient (recurring) (ONCR) | payer BC, SELFPAY ==
--- NOTE | 2025-02-28 11:11 | USCV_ITS ---
Pedro Soliman Age: 59 Gender: M : 1965 Exam Date: 02/28/2025 11:46 Ordering Phys: Juan Carlos Barillas MD Technologist: Exam Location: [facility] [place] Indication: hx of lt arm thrombus PROCEDURES: Venous duplex imaging was performed in only the left upper extremity. The following venous structures were evaluated: internal jugular vein, subclavian vein, axillary vein, and brachial veins. In addition, the basilic vein, cephalic vein, radial vein, and ulnar vein. FINDINGS: There is still non ocluding thrombus in the lt basilic mid way in the upper arm CONCLUSIONS Persistent non occlusive thrombus Left basilic extending into upper arm Owen Alejo MD (Electronically Signed) Final Date: 28 February 2025 16:51 S
--- NOTE | 2025-02-28 11:11 | CTR_ITS ---
PROCEDURE INFORMATION: Exam: CT Chest With Contrast; Diagnostic Exam date and time: 02/28/2025 12:28 PM Age: 59 years old Clinical indication: Condition or disease; Other: Prostate cancer; Prior surgery; Surgery date: 6+ months; Surgery type: Colon, prostate TECHNIQUE: Imaging protocol: Diagnostic computed tomography of the chest with contrast. Radiation optimization: All CT scans at this facility use at least one of these dose optimization techniques: automated exposure control; mA and/or kV adjustment per patient size (includes targeted exams where dose is matched to clinical indication); or iterative reconstruction. Contrast material: OMNI 350; Contrast volume: 100 ml; Contrast route: INTRAVENOUS (IV); COMPARISON: CT chest abdpel w/*[id number] 09/24/2022 9:07 AM RADIATION DOSE METRICS: Total DLP (mGy-cm): 1203.48 FINDINGS: Lungs: Unremarkable. No consolidation. No masses. Pleural spaces: Unremarkable. No pneumothorax. No pleural effusion. Heart: Unremarkable. No cardiomegaly. No pericardial effusion. Lymph nodes: Unremarkable. No enlarged lymph nodes. Vasculature: Unremarkable. No aortic aneurysm. Bones/joints: Unremarkable. No acute fracture. Soft tissues: Unremarkable. PROCEDURE INFORMATION: Exam: CT Abdomen And Pelvis With Contrast Exam date and time: 02/28/2025 12:28 PM Age: 59 years old Clinical indication: Condition or disease; Other: Prostate cancer; Prior surgery; Surgery date: 6+ months; Surgery type: Colon, prostate TECHNIQUE: Imaging protocol: Computed tomography of the abdomen and pelvis with contrast. Radiation optimization: All CT scans at this facility use at least one of these dose optimization techniques: automated exposure control; mA and/or kV adjustment per patient size (includes targeted exams where dose is matched to clinical indication); or iterative reconstruction. Contrast material: OMNI 350; Contrast volume: 100 ml; Contrast route: INTRAVENOUS (IV); COMPARISON: CT chest abdpel w/*[id number] 09/24/2022 9:07 AM RADIATION DOSE METRICS: Total DLP (mGy-cm): 1203.48 FINDINGS: Liver: Hepatic steatosis. Gallbladder and biliary ducts: The gallbladder is surgically absent. Pancreas: Normal. No ductal dilation. Spleen: Normal. No splenomegaly. Adrenal glands: Normal. No mass. Kidneys and ureters: Normal. No hydronephrosis. Stomach and bowel: Colonic diverticulosis. No bowel obstruction. Appendix: No evidence of appendicitis. Intraperitoneal space: Unremarkable. No free air. No significant fluid collection. Vasculature: Unremarkable. No abdominal aortic aneurysm. Lymph nodes: Unremarkable. No enlarged lymph nodes. Urinary bladder: Unremarkable as visualized. Reproductive: Unremarkable as visualized. Bones/joints: Unremarkable. No acute fracture. Soft tissues: Unremarkable. CT/CT chest abdpel w/*[id number] IMPRESSION: No acute findings. No evidence of mass or lymphadenopathy.
[2025-02-28] MEDS: iohexol 350 mg/mL 500 mL Btl (per mL) PO (12:15)
[2025-02-28 12:27] LABS: Blood Urea Nitrogen 11 mg/dL (8-23)
[2025-02-28] MEDS: iohexol 350 mg/mL 500 mL Btl (per mL) IV (12:32)
[2025-03-07 13:10] LABS: Hematocrit 45.1 % (37-53); Hemoglobin 14.70 g/dL (11.27-16.99); Mean Corpuscular HGB Conc 32.6 g/dL (30-55); Mean Corpuscular Hemoglobin 29.4 pg (27-33); Mean Corpuscular Volume 90.2 fl (82-101); Nucleated Red Blood Cells % 0 %; Platelet Count 204 10^3/cmm (157-399); Red Blood Count 5.00 10^6/uL (3.85-5.65); White Blood Count 3.92 10^3/uL (3.29-11.43)
[2025-03-07 13:39] LABS: Carcinoembryonic Antigen 1.0 ng/mL (0.0-4.7); Prostate Specific Antigen < 0.014 ng/mL (0-4)
[2025-03-07 13:50] LABS: Alanine Aminotransferase 18 U/L (0-41); Albumin Level 4.7 g/dL (3.5-5.2); Alkaline Phosphatase 65 U/L (40-130); Anion Gap 16.2 (5-19); Aspartate Amino Transferase 14 U/L (0-40); Blood Urea Nitrogen 12 mg/dL (8-23); Calcium 9.3 mg/dL (8.5-10.5); Carbon Dioxide 24 mmol/L (22-29); Chloride 101 mmol/L (98-107); Creatinine Clr Calc Pharmacy 114.5872; Globulin 2.9 g/dL (1.3-4.6); Glucose 94 mg/dL (65-115); Osmolality Calculated 284 mOsm/kg (285-295); Potassium 4.2 mmol/L (3.5-5.1); Sodium 137 mmol/L (136-145); Total Protein 7.6 g/dL (6.6-8.7)
== END 2025-03-08 23:59 | disposition home or self-care (01) ==
PROVIDERS: PCP Family Medicine; Visit Provider Internal Medicine
DX: C61 Malignant neoplasm of prostate; C20 Malignant neoplasm of rectum; I82.622 Acute embolism and thrombosis of deep veins of left upper extremity; Z53.9 Procedure and treatment not carried out, unspecified reason
CPT/HCPCS: 36415; 71260; 74177; 80053; 82378; 82565; 83615; 84153; 84520; 85025; 85378; 93971

== ENCOUNTER 2025-03-30 23:35 | Emergency (ER) | payer BC, SELFPAY ==
--- OUTSIDE RECORDS SUMMARY | 2025-03-30 23:41 | XMS_ITS | Encounter Summary ---
Author Organization [facility] Address [address] [place] [address] Care Team Providers Care [employer] Project Manager Name Role Phone Aniya Oliveira MD Primary Care Provider [phone] Encounter Details Date Type Department Care Team (Late st Contact Info) Description 03/18/2009 Ancillary Orders [facility] [address] [place] [phone] Carmine Shukla, [employer] [address] [place] [address] Pain Social History Tobacco Use Types Packs/Day Years Used Date Smoking Tobacco: Never Alcohol Use Standard Drinks/Week Comments No 0 (1 standard drink = 0.6 oz pur e alcohol) occassional Sex and Gender Information Value Date Recorded Sex Assigned at Not on file Legal Sex Male 6:44 AM RADIOLOGY TECH Gender Identity Not on file Sexual Orientation Not on file documented as of this encounter Plan of Treatment Not on file documented as of this encounter Results * XR CERVICAL SPINE 2 OR 3 VW (03/18/2009 3:28 PM RADIOLOGY TECH) Anatomical Region Laterality Modality Spine Computed Radiogr aphy 03/18/2009 3:1 7 PM RADIOLOGY TECH Impressions 03/18/2009 7:39 PM RADIOLOGY TECH Impression: No cervical spine instability evident. cgf: [id number] - uploaded from [employer] - Narrative 03/18/2009 7:39 PM RADIOLOGY TECH Exam: XR CERVICAL SPINE 2 OR 3 VW Date/Time of Exam: Mar 18, 2009 3:28:00 PM History: PAIN. Findings: Compared with earlier on the same day, flexion and extension views demonstrate no evidence of instability. Previously described fractures at T1 are not well delineated. Procedure Note Domenico Becker MD - 03/18/2009 Exam: XR CERVICAL SPINE 2 OR 3 VW Date/Time of Exam: Mar 18, 2009 3:28:00 PM History: PAIN. Findings: Compared with earlier on the same day, flexion and extensionviews demonstrate no evidence of instability. Previously described fractures at T1 are not welldelineated. IMPRESSION Impression: No cervical spine instability evident. cgf: [id number] - uploaded from [employer] - Carmine Shukla [employer] DIAGNOSTIC IMAGING ORDER MICHAEL Final Result documented in this encounter Visit Diagnoses Diagnosis Pain Generalized pain Pain Generalized pain documented in this encounter Care Teams [employer] Project Manager Relationship Specialty Start Date End Date Aniya Oliveira MD [address] [phone] PCP - General Family Practice 07/28/17 documented as of this encounter
--- OUTSIDE RECORDS SUMMARY | 2025-03-30 23:41 | XMS_ITS | Continuity of Care Document ---
Author Organization [facility] David Mora [facility] Quentin Hurd, [facility] ([facility]) Address [address] [place] [address] Care Team Providers Care Spool Carrier Name Role Phone YANIV MAR Primary Care Provider [phone] Assessment No assessment recorded. Plan of Treatment Reminders Order Date Submit Date Provider Last Modified By Organization Details Last Modified Time Details Appointments None recorded. Lab None recorded. Referral None recorded. Procedures None recorded. Surgeries None recorded. Imaging None recorded. Medication Orders Trulicity 3 mg/0.5 mL subcutaneou s pen injector 2024 025 ARTHUR [id number], [address], [place], [place], [id number], 08:24:05 Patient TargetsNo targets recorded. Patient InstructionsNo instructions recorded. Reason for Referral None Reported. Results Created Date Observation Date Name Description Value Unit Range Abnormal Flag Note LastModifiedBy Organization Detail LastModifiedTime 01/25/2001/24/2025 CBC WBC 4.6 x10 4.5-10 .5 Not Available [facility] [address], [place], [address], 01/24/2025 09:06:42 01/25/2001/24/2025 CBC RBC 5.00 x10 4.30-5 .90 Not Available [facility] [address], [place], [address], 01/24/2025 09:06:42 01/25/20 25 01/24/2025 CBC HGB 14.9 g/dL 13.5-1 8.0 Not Available [facility] [address] [facility], [place], [address], 01/24/2025 09:06:42 01/25/2001/24/2025 CBC HCT 46.4 % 35.0-6 0.0 Not Available [facility] [address], [place], [address], 01/24/2025 09:06:42 01/25/2001/24/2025 CBC MCV 92.8 fL 80.0-9 9.9 Not Available [facility] [address] [facility], [place], [address], 01/24/2025 09:06:42 01/25/2001/24/2025 CBC MCH 29.8 pg 27.0-3 2.0 Not Available [facility] [address] [facility], [place], [address], 01/24/2025 09:06:42 01/25/2001/24/2025 CBC MCHC 32.1 g/dL 32.0-3 6.0 Not Available [facility] [address] [facility], [place], [address], 01/24/2025 09:06:42 01/25/2001/24/2025 CBC RDW 13.0 % 11.5-1 4.5 Not Available [facility] [address] [facility], [place], [address], 01/24/2025 09:06:42 01/25/20 25 01/24/2025 CBC plt 210.9 x10 150.0- 451.0 Not Available [facility] [address] [facility], [place], [address], 01/24/2025 09:06:42 01/25/20 25 01/24/2025 CBC lymphocytes % 29.9 % 20.0-5 0.0 Not Available [facility] [address] [facility], [place], [address], 01/24/2025 09:06:42 01/25/20 25 01/24/2025 CBC granulcytes % 59.5 % 30.0-7 0.0 Not Available [facility] [address] [facility], [place], [address], 01/24/2025 09:06:42 01/25/2001/24/2025 CBC monocytes % 9.3 % 2.0-16 .0 Not Available [facility] [address] [facility], [place], [address], 01/24/2025 09:06:42 01/25/20 25 01/24/2025 CBC granulcytes# 2.7 x10 Not India ilable [facility] [address] [facility], [place], [address], 01/24/2025 09:06:42 01/25/2001/24/2025 CBC lymphocytes # 1.4 x10 Not Available [facility] [address] [facility], [place], [address], 01/24/2025 09:06:42 01/25/2001/24/2025 CBC monocytes # 0.4 x10 Not Avai lable [facility] [address] [facility], [place], [address], 01/24/2025 09:06:42 01/25/20 25 01/24/2025 HBA1C hemaglobin A1C 6.5 4.2-6. 5 Not Available [facility] [address] [facility], [place], [address], 01/24/2025 09:26:33 01/25/2001/24/2025 CMP (MALE ) glucose 135.0 mg/dL 60.0-9 9.0 high Not Available [facility] [address] [facility], [place], [address], 01/24/2025 09:54:35 01/25/20 25 01/24/2025 CMP (MALE ) BUN (blood urea nitrogen) 16.0 mg/dL 10.0-2 6.0 Not Available [facility] [address] [facility], [place], [address], 01/24/2025 09:54:35 01/25/20 25 01/24/2025 CMP (MALE ) creatinine (serum) 1.1 mg/dL 0.4-1. 5 Not Available [facility] [address] [facility], [place], [address], 01/24/2025 09:54:35 01/25/20 25 01/24/2025 CMP (MALE ) BUN/creatini ne ratio 14.55 ratio Not Available [facility] [address] [facility], [place], [address], 01/24/2025 09:54:35 01/25/20 25 01/24/2025 CMP (MALE ) eGFR calculated 72.[address] [facility] [address] [facility], [place], [address], 01/24/2025 09:54:35 01/25/20 25 01/24/2025 CMP (MALE ) total protein 7.5 g/dL 6.0-8. 5 Not Available [facility] [address] [facility], [place], [address], 01/24/2025 09:54:35 01/25/20 25 01/24/2025 CMP (MALE ) total bilirubin 0.8 mg/dL 0.2-1. 3 Not Available [facility] [address] [facility], [place], [address], 01/24/2025 09:54:35 01/25/20 25 01/24/2025 CMP (MALE ) albumin 4.5 g/dL 3.5-5. 5 Not Available [facility] [address] [facility] 1, [place], [address], 01/24/2025 09:54:35 01/25/20 25 01/24/2025 CMP (MALE ) globulin 3.0 calc Not Available [facility] [address] [facility] [address] [address], [place], [address], 01/24/2025 09:54:35 01/25/20 25 01/24/2025 CMP (MALE ) AST (SGOT) 23.0 U/L 0.0-46 .0 Not Available [facility] [address] [facility] [address], [place], [address], 01/24/2025 09:54:35 01/25/20 25 01/24/2025 CMP (MALE ) altv (SGPT) 23.0 U/L 13.0-6 9.0 normal Not Available [facility] [address] [facility] [address], [place], [address], 01/24/2025 09:54:35 01/25/20 25 01/24/2025 CMP (MALE ) A/G ratio 1.5 ratio Not Available [facility] [address] [facility] 1, [place], [address], 01/24/2025 09:54:35 01/25/20 25 01/24/2025 CMP (MALE ) ALP phos 56.0 U/L 30.0-1 40.0 normal Not Available [facility] [address] [facility], [place], [address], 01/24/2025 09:54:35 01/25/2001/24/2025 CMP (MALE ) calcium 9.2 mg/dL 8.4-10 .5 Not Available [facility] [address] [facility], [place], [address], 01/24/2025 09:54:35 01/25/20 25 01/24/2025 CMP (MALE ) sodium 139.0 mmol/ L 136.0- 145.0 Not Available [facility] [address] [facility] 1, [place], [address], 01/24/2025 09:54:35 01/25/2001/24/2025 CMP (MALE ) potassium 4.4 mmol/ L 3.5-5. 1 Not Available [facility] [address] [facility], [place], [address], 01/24/2025 09:54:35 01/25/2001/24/2025 CMP (MALE ) chloride 104.0 mmol/ L 98.0-1 10.0 normal Not Available [facility] [address] [facility], [place], [address], 01/24/2025 09:54:35 01/25/2001/24/2025 CMP (MALE ) C02 27.0 mmol/ L 22.0-3 1.0 Not Available [facility] [address] [facility], [place], [address], 01/24/2025 09:54:35 01/25/20 25 01/24/2025 CMP (MALE ) anion gap 8.0 calc Not Available [facility] [address] [facility], [place], [address], 01/24/2025 09:54:35 01/25/20 25 01/24/2025 CMP (MALE ) osmolality 290.1 calc Not Available [facility] [address] [facility], [place], [address], 01/24/2025 09:54:35 Result Notes None recorded. Problems Name Problem SNOMED Code Status Onset Date Resolution Date Notes Provider Name and Address Organization Details Recorded Time Malignant neoplasm of colon and/or rectum 923648152 Active 2022 invasive poorly differenti ated adenocarci noma with trasmural invasion into perirectal fat CHASIDY tucker [facility] 3 08:21:35 Essential hypertensi on 86605378 Active 2022 CHASIDY tucker [facility] 5 14:28:24 Type 2 diabetes mellitus 54087814 Active 2022 CH[facility]IDY tucker [facility] 3 08:21:47 History of malignant neoplasm of colon 248722957 Active 2022 Yaniv Mar MD [address] [place] [address], [phone], [facility] 3 09:03:42 Deep venous thrombosis of upper extremity 956989925 Active 2023 CHASIDY tucker [facility] 4 08:57:20 Malignant neoplasm of prostate 956656448 Active 2023 Yaniv Mar MD [address] [place] [address], [phone], [facility] 4 09:59:26 Blood in urine 58225351 Active 2023 Yara tucker [facility] 4 13:21:55 History of malignant neoplasm of rectum 380316857 Active 2024 Yaniv Mar MD [address] [place], [address], [facility] 09:[facility]07 Problem Notes None recorded. Procedures Surgical History Date Name Laterality Status Provider Name and Address Organization Details Recorded Time 09/13/19 24 [facility] 16:30:15 07/12/19 24 core [facility] 08/09/2023 08:54:28 04/14/20 23 [facility] 11:14:06 07/08/19 18 excision of malignant tumor of rectum by transanal [facility] 11/18/2022 08:23:44 [facility]cyst[facility] 11/18/2022 08:22:14 Imaging Results None recorded. Procedure Notes None recorded. Medical Equipment None Reported. Allergies No known drug allergies Medications Name Sig Start Date Stop Date Status Note LastModified by Organization Details LastModified Time metronida zole 500 mg tablet 09/25 completed Not Available Not Available Not Available ciproflox acin 500 mg tablet 09/25 completed Not Available Not Available Not Available sulfameth oxazole 800 mg-trimet hoprim 160 mg tablet TAKE 1 TABLET BY MOUTH EVERY 12 HOURS FOR 5 DAYS 02/16 completed Not Available Not Available Not Available ondansetr on 8 mg disintegr ating tablet 09/25 completed Not Available Not Available Not Available cephalexi n 500 mg capsule 09/25 completed Not Available Not Available Not Available lisinopri l 30 mg tablet TAKE 1 TABLET BY MOUTH DAILY 02/19 completed Not Available Not Available Not Available polyethyl paul glycol 3350 17 gram/dose oral powder 09/25 completed Not Available Not Available Not Available neomycin 500 mg tablet 09/25 completed Not Available Not Available Not Available oxybutyni n chloride 5 mg tablet 09/25 completed Not Available Not Available Not Available lisinopri l 40 mg tablet Take 1 tablet every day by oral route for 90 days. 2024 active Not Available Not Available Not Avai lable fluoxetin e 20 mg capsule TAKE 1 CAPSULE BY MOUTH EVERY DAY 06/07 completed Not Available Not Available Not Available metformin ER 500 mg tablet,ex tended release 24 hr TAKE 2 TABLETS BY MOUTH DAILY 06/13 completed Not Available Not Available Not Available oxycodone 5 mg tablet 09/25 completed Not Available Not Available Not Available aspirin daily 09/25 completed 0; Recorded 04/22/20 22 7:08AM by Chasidy Quispe LPN, Office Visit; Not Available Not Available Not Available sildenafi l up to once daily 09/25 completed substitu tion permitte d; Recorded 11/05/19 20 9:31AM by Sandy Sepulveda, Office Visit; Refill Quantity : 5; Tablet; Not Available Not Available Not Available metformin daily 04/15 completed may refill at 90 days supply if tolerati ng well #180 with 3 refills; Recorded 04/22/20 22 7:24AM by Yaniv Mar MD, Office Visit; Refill Quantity : 60; Tablet; Not Available Not Available Not Available Vitamin-C daily 04/15 completed 0; Recorded 04/22/20 22 7:08AM by Chasidy Quispe LPN, Office Visit; Not Available Not Available Not Available Suprep Bowel Prep Kit 17.5 gram-3.13 gram-1.6 gram oral solution 04/15 completed Not Available Not Available Not Available Eliquis 5 mg tablet TAKE 1 TABLET BY MOUTH TWICE DAILY FOR BLOOD CLOT active Not Available Not Available No t Available Trulicity 1.5 mg/0.5 mL subcutane ous pen injector ADMINIST ER 1.5 MG UNDER THE SKIN EVERY WEEK active Not Available Not Available No t Available Trulicity 0.75 mg/0.5 mL subcutane ous pen injector inject 0.75mg SUBCUTAN EOUSLY every week 08/19 /2025 completed Not Available Not Available Not Available Trulicity 3 mg/0.5 mL subcutane ous pen injector ADMINIST ER 3 MG UNDER THE SKIN EVERY WEEK active Not Available Not Available No t Available Paxlovid 300 mg (150 mg x 2)-100 mg tablets in a dose pack take all 3 morning tabs (yellow side) by mouth at the same time & all 3 evening tabs (blue side) at the same time for 5 days as directed 06/13 completed Not Available Not Available Not Available Vitals Date Recorded Body height Body mass index (BMI) Body weight Body temperature Heart rate Oxygen saturation Systolic And Diastolic Provider Name and Address Organization Details Last Updated DateTime 5 176.53 cm 30.3 kg/m2 53384.2 1 g 97.4 [degF] 66 /min 99 % 130/72 mm[Hg] CHASIDY QUISPE [facility] 08:08:29 Social History Question Answer Notes LastModified by [employer] Details LastModified Time Tobacco Smoking Status Never Smoker CHASIDY QUISPE [facility] 11/18/2022 08:20:55 What Was The Date Of Your Most Recent Tobacco Screening? 10/15/2024 Information not available 10/15/2024 Sex: Unknown Functional Status Question Answer Note LastModified by [employer] Details LastModified Time How many times per week do you consume alcohol? 3-4 times per week 3 per week Information not available 10/15/2024 Do you use any illicit or recreational drugs? No Information not available 10/15/2024 Do you or have you ever used any other forms of tobacco or nicotine? No Information not available 10/15/2024 What is your level of alcohol consumption? Occasional [email or web address] Information not available 11/18/2022 Mental Status None recorded. Family History Relationship Description Onset Age of this Age Resolved Age Notes LastModified by Organization Details LastModified Time Father Malignant neoplasm of liver [email or web address] Not available 11/18 08:20:18 Father Diabetes mellitus [email or web address] Not available 11/18 08:20:26 Father Coronary atherosclero sis [email or web address] Not available 11/18 08:20:40 Medical History No medical history recorded. Immunizations Vaccine Type Date Status Note Provider Nam e and Address Organization Details Recorded Time zoster recombinant 9 completed CHASIDY tucker [facility] 11/18/2022 08:19:35 zoster recombinant 8 completed [facility] 11/18/2022 08:19:35 COVID-19 vaccine, vector-nr, rS-Ad26, PF, 0.5 mL 1 completed [facility] 11/18/2022 08:19:35 zoster live 9 completed Not Available [facility] 06/13/2023 14:42:48 zoster live 8 completed Not Available [facility] 06/13/2023 14:42:48 Influenza, split virus, trivalent, preservative 8 completed Not Available [facility] 06/13/2023 14:42:48 Past Encounters Encounter ID Performer Location Encounter Start Date Encounter Closed Date Diagnosis/Indication Diagnosis SNOMED-CT Code Diagnosis ICD10 Code Diagnosis IMO Codes Diagnosis Note [id number] Yaniv Mar MD [facility] ([facility]) [address] [place] [phone] 01/24/2025 08:02:44 01/25/2025 11:02:33 Essential hypertension 34861900 I10 Type 2 marybeth betes mellitus 24327902 E11.9 [id number] Yaniv Mar MD [facility] ([facility]) [address] [place] [phone] 01/25/2025 08:01:33 01/25/2025 08:27:23 Essential hypertension 90309132 I10 monitor HR and bp and call with results. Deep venou s thrombosis of upper extremity 944138285 I82.629 he will meet with oncology to reassess next month. they are going to repeat the u/s of his arm apparently . Type 2 marybeth betes mellitus 01009389 E11.9 History of malignant neoplasm of rectum 422517564 Z85.154 0379025 due for recheck in 1.5 years 04/14/2023 he is aware and will schedule at [facility] Malignant neoplasm of prostate 561775660 C61 new onset hematuria resolved. he continues to follow with urology. Health Concerns Section Related Observation LastModified by Organization Detai ls LastModified Time None Recorded Concern Status LastModified by Organization Details LastModified Time None Recorded Payers Encounter Date Sequence Insurance Name Policy Number Policy Peña Covered Member ID Peña Member ID Guarantor Name 01/25/2025 1 [employer] [id number] Pedro Soliman [id number] Pedro Soliman Notes Date Note Type Note Provider Name and Address Organization Details Recorded Time 5 text/html DiabetesReported by PatientHPIFor duration, patient reportschronic. For control, patient reportsusually well controlled,treated with diet and oral medications,hemoglobin a1c has been less than 7 (6.5), andhemoglobin a1c goal is less than 7. For compliance, patient reportscompliant with medicationsandcompliant with follow-up visits. For associated symptoms, patient reportsno dizziness,no sweats, andno numbness of feet. Hypertension IM/FMReported by PatientHPIFor quality, patient reportshere for check-up. For duration, patient reportshtn present for ___ years. For onset/timing, patient reportsgradual onset. For alleviating factors, patient reportsmedication. For self care, patient reportsnon-smoker. For associated symptoms, patient reportsno shortness of breath,no fatigue,no palpitations,no headaches, andno chest pain(will have dizziness 1 out of 5 times when he has been working on the ground and then stood up).ROS as noted in the HPI Yaniv Mar MD [address] [place] [address], [phone], [facility] 01/25/2025 08:24:36
--- OUTSIDE RECORDS SUMMARY | 2025-03-30 23:41 | XMS_ITS | Encounter Summary ---
Author Organization [facility] Address [address] [place] [address] Care Team Providers Care Computing Consultant Name Role Phone Aniya Oliveira MD Primary Care Provider [phone] Encounter Details Date Type Department Care Team (Late st Contact Info) Description 03/18/2009 Ancillary Orders [facility] 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 Procedure Note Rodrick Bill III, MD - 03/20/2009 AP and lateral radiograph of the left shoulder shows the AC separation. us Rodrick Bill III, MD DIAGNOSTIC IMAGING ORD ERABLES Final Result documented in this encounter Visit Diagnoses Diagnosis Pain Generalized pain documented in this encounter Care Teams Computing Consultant Relationship Specialty Start Date End Date Aniya Oliveira MD [address] [facility] [address] [place] [id number] PCP - General Family Practice 07/28/17 documented as of this encounter
--- OUTSIDE RECORDS SUMMARY | 2025-03-30 23:41 | XMS_ITS | Clinical Summary ---
Author Organization [facility] Address [address] [place] [address] Phone Care Team Providers Care Power Plant Mechanic Name Role Phone Aniya Oliveira MD Primary Care Provider [phone] Allergies No known active allergies Medications IBUPROFEN IB PO Take by mouth. Active cyclobenzaprine (FLEXERIL) 10 mg tablet Take 10 mg by mouth 3 times daily as needed . 05/28/2017 Active lisinopril (PRINIVIL) 30 mg tablet 30 mg daily . 07/12/2017 Active oxyCODONE-aceta minophen (PERCOCET) 5-325 mg tablet Take 1 Tablet by mouth every 4 hours as needed for Pain. Max Daily Amount: 6 Tablets 30 Tablet 08/01/2017 3:42 PM CDT 08/01/2017 Active Active Problems Problem Noted Date Diagnosed Date Rectal adenocarcinoma 08/02/2017 Cancer Staging:Clinical: Unsigned Pathologic stage from 08/02/2017: pT3 - Signed by Shannen Fung MD on 08/02/2017 Lt Rib Fractures 02/25/2009 Lt Acromioclavicular Separation 02/25/2009 Abrasions of multiple sites 02/25/2009 Crush Injury to Chest 02/25/2009 Pulmonary Contusions 02/25/2009 Lt Acromium Fracture 02/25/2009 Lt Scapular Spine Fracture 02/25/2009 Social History Tobacco Use Types Packs/Day Years Used Date Smoking Tobacco: Never Smokeless Tobacco: Never Alcohol Use Standard Drinks/Week Comments No 0 (1 standard drink = 0.6 oz pur e alcohol) occassional Sex and Gender Information Value Date Recorded Sex Assigned at Not on file 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 Gender Identity Not on file Sexual Orientation Not on file Last Filed Vital Signs Vital Sign Reading Time Taken Comments Blood Pressure 140/94 12/06/2017 11:01 AM CDT Pulse 61 12/06/2017 11:01 AM CDT Temperature 36.3 C (97.3 F) 08/01/2017 2:50 PM CDT Respiratory Rate 18 08/01/2017 5:50 PM CDT Oxygen Saturation 99% 08/01/2017 5:50 PM CDT Inhaled Oxygen Concentration - - Weight 99.1 kg (218 lb 8 oz) 12/06/2017 11:01 AM CDT Height 177.8 cm (5' 10 ) 12/06/2017 11:01 AM CDT Body Mass Index 31.35 12/06/2017 11:01 AM CDT Plan of Treatment Health Maintenance Due Date Last Done Comments DTAP/TDAP/TD VACCINES (1 - Tdap) 08/31/1983 COLORECTAL SCREENING 2009 Colorectal Cancer Screening 2009 FIT-DNA Q 3 years 2009 FIT/FOBT Q 1 year 2009 Flex Sig/CT Colonography Q 5 years 2009 ZOSTER VACCINE (1 of 2) 2014 INFLUENZA VACCINE (#1) 2024 RSV VACCINE (60+ or ) (1 - 1-dose 75+ series) 08/31/2039 HEPATITIS B VACCINES Aged Out No long er eligible based on patient's age to complete this topic Advance Directives For more information, please contact: [phone] * Full Code (Latest Code Status on File) Date Activated Date Inactivated Comments 08/01/2017 8:05 AM 08/01/2017 8:33 PM * Full Code Date Activated Date Inactivated Comments 02/25/2009 1:30 PM 03/01/2009 7:53 PM Care Teams Power Plant Mechanic Relationship Specialty Start Date End Date Aniya Oliveira MD [address] [place] [address] PCP - General Family Practice 07/28/17
--- OUTSIDE RECORDS SUMMARY | 2025-03-30 23:41 | XMS_ITS | Continuity of Care Document ---
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 Plan of Treatment Reminders Order Date Submit Date Provider Last Modified By Organization Details Last Modified Time Details Appointments None recorded. Lab hemoglobin A1C/hemoglo bin total, QN, blood 2024 025 [facility], [address], [place], [address], 5 09:26:33 CMP, serum or plasma 2024 025 [facility], [address], [place], [address], 5 09:54:35 CBC 2024 025 [facility], [address], [place], [address], 5 09:06:42 Referral None recorded. Procedures None recorded. Surgeries None recorded. Imaging None recorded. Medication Orders None recorded. Patient TargetsNo targets recorded. Patient InstructionsNo instructions recorded. Reason for Referral None Reported. Results Created Date Observation Date Name Description Value Unit Range Abnormal Flag Note LastModifiedBy Organization Detail LastModifiedTime 01/25/2001/24/2025 CBC WBC 4.6 x10 4.5-10 .5 Not Available [facility] [address], [place], [address], 01/24/2025 09:06:42 01/25/2001/24/2025 CBC RBC 5.00 x10 4.30-5 .90 Not Available [facility] [address], [place], [address], 01/24/2025 09:06:42 01/25/2001/24/2025 CBC HGB 14.9 g/dL 13.5-1 8.0 Not Available [facility] [address], [place], [address], 01/24/2025 09:06:42 01/25/2001/24/2025 CBC HCT 46.4 % 35.0-6 0.0 Not Available [facility] [address], [place], [address], 01/24/2025 09:06:42 01/25/2001/24/2025 CBC MCV 92.8 fL 80.0-9 9.9 Not Available [facility] [address] [facility] 1, [place], [address], 01/24/2025 09:06:42 01/25/2001/24/2025 CBC MCH 29.8 pg 27.0-3 2.0 Not Available [facility] [address], [place], [address], 01/24/2025 09:06:42 01/25/2001/24/2025 CBC MCHC 32.1 g/dL 32.0-3 6.0 Not Available [facility] [address], [place], [address], 01/24/2025 09:06:42 01/25/2001/24/2025 CBC RDW 13.0 % 11.5-1 4.5 Not Available [facility] [address] [address] [facility], [place], [address], 01/24/2025 09:06:42 01/25/2001/24/2025 CBC plt 210.9 x10 150.0- 451.0 Not Available [facility] [address] [facility] [address], [place], [address], 01/24/2025 09:06:42 01/25/2001/24/2025 CBC lymphocytes % 29.9 % 20.0-5 0.0 Not Available [facility] [address] [facility] [address], [place], [address], 01/24/2025 09:06:42 01/25/2001/24/2025 CBC granulcytes % 59.5 % 30.0-7 0.0 Not Available [facility] [address] [facility] 1, [place], [address], 01/24/2025 09:06:42 01/25/2001/24/2025 CBC monocytes % 9.3 % 2.0-16 .0 Not Available [facility] [address] [facility] 1, [place], [address], 01/24/2025 09:06:42 01/25/2001/24/2025 CBC granulcytes# 2.7 x10 Not India ilable [facility] [address] [facility], [place], [address], 01/24/2025 09:06:42 01/25/2001/24/2025 CBC lymphocytes # 1.4 x10 Not Available [facility] [address] [facility] 1, [place], [address], 01/24/2025 09:06:42 01/25/20 25 01/24/2025 CBC monocytes # 0.4 x10 Not Avai lable [facility] [address] [facility] [address], [place], [address], 01/24/2025 09:06:42 01/25/20 25 01/24/2025 HBA1C hemaglobin A1C 6.5 4.2-6. 5 Not Available [facility] [address] [address], [place], [address], 01/24/2025 09:26:33 01/25/2001/24/2025 CMP (MALE ) glucose 135.0 mg/dL 60.0-9 9.0 high Not Available [address] [address], [place], [address], 01/24/2025 09:54:35 01/25/20 25 01/24/2025 CMP (MALE ) BUN (blood urea nitrogen) 16.0 mg/dL 10.0-2 6.0 Not Available [address] [address], [place], [address], 01/24/2025 09:54:35 01/25/20 25 01/24/2025 CMP (MALE ) creatinine (serum) 1.1 mg/dL 0.4-1. 5 Not Available [address] [address], [place], [address], 01/24/2025 09:54:35 01/25/20 25 01/24/2025 CMP (MALE ) BUN/creatini ne ratio 14.55 ratio Not Available [address] [address], [place], [address], 01/24/2025 09:54:35 01/25/20 25 01/24/2025 CMP (MALE ) eGFR calculated 72.6 Not Available [facility] [address] [facility], [place], [address], 01/24/2025 09:54:35 01/25/20 25 01/24/2025 CMP (MALE ) total protein 7.5 g/dL 6.0-8. 5 Not Available [facility] [address] [facility] 1, [place], [address], 01/24/2025 09:54:35 01/25/20 25 01/24/2025 CMP (MALE ) total bilirubin 0.8 mg/dL 0.2-1. 3 Not Available [facility] [address] [facility], [place], [address], 01/24/2025 09:54:35 01/25/20 25 01/24/2025 CMP (MALE ) albumin 4.5 g/dL 3.5-5. 5 Not Available [facility] [address] [facility], [place], [address], 01/24/2025 09:54:35 01/25/2001/24/2025 CMP (MALE ) globulin 3.0 calc Not Available [facility] [address] [facility] [address], [place], [address], 01/24/2025 09:54:35 01/25/20 25 01/24/2025 CMP (MALE ) AST (SGOT) 23.0 U/L 0.0-46 .0 Not Available [facility] [address] [facility] [address] [facility], [place], [address], 01/24/2025 09:54:35 01/25/20 25 01/24/2025 CMP (MALE ) altv (SGPT) 23.0 U/L 13.0-6 9.0 normal Not Available [facility] [address] [facility] [address] [facility], [place], [address], 01/24/2025 09:54:35 01/25/20 25 01/24/2025 CMP (MALE ) A/G ratio 1.5 ratio Not Available [facility] [address] [facility] [address], [place], [address], 01/24/2025 09:54:35 01/25/20 25 01/24/2025 CMP (MALE ) ALP phos 56.0 U/L 30.0-1 40.0 normal Not Available [facility] [address] [facility] [address], [place], [address], 01/24/2025 09:54:35 01/25/20 25 01/24/2025 CMP (MALE ) calcium 9.2 mg/dL 8.4-10 .5 Not Available [facility] [address] [facility] 1, [place], [address], 01/24/2025 09:54:35 01/25/20 25 01/24/2025 CMP (MALE ) sodium 139.0 mmol/ L 136.0- 145.0 Not Available [facility] [address] [facility] 1, [place], [address], 01/24/2025 09:54:35 01/25/20 25 01/24/2025 CMP (MALE ) potassium 4.4 mmol/ L 3.5-5. 1 Not Available [facility] [address] [facility] 1, [place], [address], 01/24/2025 09:54:35 01/25/20 25 01/24/2025 CMP (MALE ) chloride 104.0 mmol/ L 98.0-1 10.0 normal Not Available [facility] [address] [facility] 1, [place], [address], 01/24/2025 09:54:35 01/25/20 25 01/24/2025 CMP (MALE ) C02 27.0 mmol/ L 22.0-3 1.0 Not Available [facility] [address] [facility] [address], [place], [address], 01/24/2025 09:54:35 01/25/2001/24/2025 CMP (MALE ) anion gap 8.0 calc Not Available [facility] [address], [place], [address], 01/24/2025 09:54:35 01/25/2001/24/2025 CMP (MALE ) osmolality 290.1 calc Not Available [facility] [address], [place], [address], 01/24/2025 09:54:35 Result Notes None recorded. 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 3 08:21:47 History of malignant neoplasm of colon 243419345 Active 2022 Yaniv Mar MD [address] [place], [address] , [facility] 3 09:03:42 Deep venous thrombosis of upper extremity 067093495 Active 2023 CHASIDY tucker [facility] 4 08:57:20 Malignant neoplasm of prostate 550955718 Active 2023 Yaniv Mar MD [address] [place], [address], [facility], Quentin 4 09:59:26 Blood in urine 87112163 Active 2023 Yara Bailee [facility], [place] 4 13:21:55 History of malignant neoplasm of rectum 368674798 Active 2024 Yaniv Mar MD [address] [place], [address], [facility], [place] 5 09:48:07 Problem Notes None recorded. Procedures Surgical History Date Name Laterality Status Provider Name and Address Organization Details Recorded Time 09/13/19 24 prostatectomy completed [facility] Bailee [facility] 09/21/2023 16:30:15 07/12/19 24 core needle biopsy [facility] 08/09/2023 08:54:28 04/14/20 23 [facility] 05/31/2023 11:14:06 07/08/19 18 excision of malignant tumor of rectum by transanal approach completed [facility] 11/18/2022 08:23:44 cholecystectomy completed [facility] 11/18/2022 08:22:14 Imaging Results None recorded. Procedure [...] 0; Recorded 04/22/20 22 7:08AM by Chasidy Jade LPN, Office Visit; Not Available Not Available [...] 0; Recorded 04/22/20 22 7:08AM by Chasidy Jade LPN, Office Visit; Not Available Not Available [...] injector inject 0.75mg SUBCUTAN EOUSLY every week 12/25 completed Not Available Not Available Not Available [...] Not Available Not Available Not Available Vitals None Recorded Social History Question Answer Notes LastModified by Siriona Details LastModified Time Tobacco Smoking Status [facility] 08:20:55 What Was The Date Of Your Most Recent Tobacco Screening? 10/15/2024 Information not available 10/15/2024 Sex: Unknown Functional Status Question Answer Note LastModified by [email or web address] ion Details LastModified Time How many times per week do you consume alcohol? 3-4 times per week 3 per week Information not available 10/15/2024 Do you use any illicit or recreational drugs? No Information not available 10/15/2024 Do you or have you ever used any other forms of tobacco or nicotine? No Information not available 10/15/2024 What is your level of alcohol consumption? Occasional Information not available 11/18/2022 Mental Status None recorded. Family History Relationship Description Onset Age of this Age Resolved Age Notes LastModified by Organization Details LastModified Time Father Malignant neoplasm of liver [email or web address] Not available 11/18 08:20:18 Father Diabetes mellitus [email or web address] Not available 11/18 08:20:26 Father Coronary atherosclero sis [email or web address] Not available 11/18 08:20:40 Medical History No medical history recorded. Immunizations Vaccine Type Date Status Note Provider Nam e and Address Organization Details Recorded Time zoster recombinant 9 completed CHASIDY tucker, [facility] 11/18/2022 08:19:35 zoster recombinant 8 completed CHASIDY tucker, [facility] 11/18/2022 08:19:35 COVID-19 vaccine, vector-nr, rS-Ad26, PF, 0.5 mL 1 completed CHASIDY tucker, [facility] 11/18/2022 08:19:35 zoster live 9 completed Not Available [facility] 06/13/2023 14:42:48 zoster live 8 completed Not Available [facility] 06/13/2023 14:42:48 Influenza, split virus, trivalent, preservative 8 completed Not Available [facility] 06/13/2023 14:42:48 Past Encounters Encounter ID Performer Location Encounter Start Date Encounter Closed Date Diagnosis/Indication Diagnosis SNOMED-CT Code Diagnosis ICD10 Code Diagnosis IMO Codes Diagnosis Note [id number] Yaniv Mar MD [facility] ([facility]) [address] [place] [phone] 01/24/2025 08:02:44 01/25/2025 11:02:33 Essential hypertension 62717799 I10 Type 2 marybeth betes mellitus 76312962 E11.9 Health Concerns Section Related Observation LastModified by Organization Detai ls LastModified Time None Recorded Concern Status LastModified by Organization Details LastModified Time None Recorded Payers Encounter Date Sequence Insurance Name Policy Number Policy Peña Covered Member ID Peña Member ID Guarantor Name 01/24/2025 1 [employer] [id number] Pedro Soliman [id number] Pedro Soliman
--- OUTSIDE RECORDS SUMMARY | 2025-03-30 23:41 | XMS_ITS | Data Portability ---
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 Name Role Phone YANIV FELIZ Primary Care Provider Assessment Encounter Date Assessment Date Assessment LastModified by Organization Details LastModified Time 10/15/2024 10/15/2024 left upper arm bicep intact to hook test no asymmetry visually or in strength testing of the biceps bilat left upper arm is swollen slightly but is noticeably larger than the right without pitting no redness or warmth no palpable cord [email or web address] Not available 10/15/2024 10:11:32 Plan of Treatment Reminders Order Date Submit Date Provider Last Modified By Organization Details Last Modified Time Details Appointments None recorded. Lab hemoglobin A1C/hemoglo bin total, QN, blood 2024 025 [facility], [address], [facility] 1, [place], [address], 5 09:26:33 CMP, serum or plasma 2024 025 ARTHUR [facility], [address], [address], [place], [address], 5 09:54:35 CBC 2024 025 [facility], [address], [facility] 1, [place], [address], 5 09:06:42 PSA, serum or plasma 2024 025 [facility] [address] [place] [address], [address], [place], [address], 5 10:03:09 urinalysis, complete 2024 025 [facility], [address], [address], [place], [address], 10:43:31 microalbumi n/creatinin e, mass ratio, urine 2024 025 [facility], [address] [place] [address], [address], [place], [address], 5 10:03:05 HbA1c (hemoglobin A1c), blood [address] [facility], [address], [address], [place], [address], 5 08:10:25 CMP, serum or plasma 2024 025 [facility], [address], [address], [place], [address], 5 11:39:46 carcinoembr yonic Ag, quant, serum or plasma 2024 025 [facility], [address] [place] [address], [address], [place], [address], 5 10:03:08 D-dimer, quant, plasma 2024 025 [facility], [address] [place] [address], [address], [place], [address], 5 10:03:07 D-dimer, quant, plasma 2024 025 [email or web address] [id number] [facility], [address], [address], [place], [address], 08:35:23 CBC w/ diff [address], [address] [facility], [address], [place], [address], 08:35:23 Referral urologist referral 2024 025 [facility], [address], [place], [address], 12:42:26 hematologis t referral 2024 025 [facility] Regulo Salgado MD, [address] [place], [address], 16:03:47 Procedures None recorded. Surgeries None recorded. Imaging US, duplex, venous, upper extremity - [id number] Left Arm 2024 025 [facility] ([facility]), [address] [facility], [place], [address], 15:12:03 Medication Orders Trulicity 3 mg/0.5 mL subcutaneou s pen injector 2024 025 [id number], [address], [place], [place], [id number], 08:24:05 Trulicity 1.5 mg/0.5 mL subcutaneou s pen injector 2024 025 [facility][id number], [address], [place], [place], [id number], 5 17:24:00 Trulicity 0.75 mg/0.5 mL subcutaneou s pen injector 2024 025 [email or web address] [facility] #[id number], [address], [place], [place], [id number], 11:26:07 Patient TargetsNo targets recorded. Patient Instructions Encounter Date Encounter Id Patient Instructions Last Modified By Organization Details Last Modified Time 10/25/2024 [id number] diabetic eye exam* - please schedule 1 year from previous examination. new dx of DM Not available 11/02/2024 08:54:29 Reason for Referral Referring Physician: Yaniv mcintyre, Family Medicine, Encounter Date: 10/15/2024 Urologist Referral for Malig nant neoplasm of prostate Referring Physician: Yaniv Feliz [facility], Encounter Date: 10/15/2024 Results Created Date Observation Date Name Description Value Unit Range Abnormal Flag Note LastModifiedBy Organization Detail LastModifiedTime 10/16/1910/15/2024 CBC WBC 3.8 x10 4.5-10 .5 low Not Available [facility] [address] [facility] 1, [place], [address], 10/15/2024 10:38:03 10/16/19 25 10/15/2024 CBC RBC 4.82 x10 4.30-5 .90 Not Available [facility] [address] [facility], [place], [address], 10/15/2024 10:38:03 10/16/19 25 10/15/2024 CBC HGB 14.5 g/dL 13.5-1 8.0 Not Available [facility] [address] [facility], [place], [address], 10/15/2024 10:38:03 10/16/19 25 10/15/2024 CBC HCT 44.0 % 35.0-6 0.0 Not Available [facility] [address] [facility] 1, [place], [address], 10/15/2024 10:38:03 10/16/19 25 10/15/2024 CBC MCV 91.2 fL 80.0-9 9.9 Not Available [facility] [address] [facility] 1, [place], [address], 10/15/2024 10:38:03 10/16/19 25 10/15/2024 CBC MCH 30.1 pg 27.0-3 2.0 Not Available [facility] [address] [facility] [address] [facility] 1, [place], [address], 10/15/2024 10:38:03 10/16/19 25 10/15/2024 CBC MCHC 33.0 g/dL 32.0-3 6.0 Not Available [facility] [address] [facility] 1, [place], [address], 10/15/2024 10:38:03 10/16/19 25 10/15/2024 CBC RDW 12.8 % 11.5-1 4.5 Not Available [facility] [address] [facility] [address] [facility] 1, [place], [address], 10/15/2024 10:38:03 10/16/19 25 10/15/2024 CBC plt 200.0 x10 150.0- 451.0 Not Available [facility] [address] [facility] 1, [place], [address], 10/15/2024 10:38:03 10/16/19 25 10/15/2024 CBC lymphocytes % 31.0 % 20.0-5 0.0 Not Available [facility] [address] [facility] 1, [place], [address], 10/15/2024 10:38:03 10/16/19 25 10/15/2024 CBC granulcytes % 58.2 % 30.0-7 0.0 Not Available [facility] [address] [facility] 1, [place], [address], 10/15/2024 10:38:03 10/16/19 25 10/15/2024 CBC monocytes % 7.9 % 2.0-16 .0 Not Available [facility] [address] [facility], [place], [address], 10/15/2024 10:38:03 10/16/19 25 10/15/2024 CBC granulcytes# 2.2 x10 Not India ilable [facility] [address] [facility] 1, [place], [address], 10/15/2024 10:38:03 10/16/19 25 10/15/2024 CBC lymphocytes # 1.2 x10 Not Available [facility] [address] [facility] 1, [place], [address], 10/15/2024 10:38:03 10/16/19 25 10/15/2024 CBC monocytes # 0.3 x10 Not Avai lable [facility] [address] [facility] 1, [place], [address], 10/15/2024 10:38:03 10/16/19 25 10/15/2024 URINA LYSIS WITH MICRO color YELLOW Not Available [facility] [address] [facility], [place], [address], 10/15/2024 10:43:31 10/16/19 25 10/15/2024 URINA LYSIS WITH MICRO clarity CLEAR Not Available [facility] [address] [facility] 1, [place], [address], 10/15/2024 10:43:31 10/16/19 25 10/15/2024 URINA LYSIS WITH MICRO glu TRACE abnormal Not Available [facility] [address], [place], [address], 10/15/2024 10:43:31 10/16/19 25 10/15/2024 URINA LYSIS WITH MICRO bili NEGATI VE Not Available [facility] [address], [place], [address], 10/15/2024 10:43:31 10/16/19 25 10/15/2024 URINA LYSIS WITH MICRO ket NEGATI VE Not Available [facility] [address], [place], [address], 10/15/2024 10:43:31 10/16/19 25 10/15/2024 URINA LYSIS WITH MICRO S.g >1.030 1.005- 1.025 high > Not Available [facility] [address] [facility] 1, [place], [address], 10/15/2024 10:43:31 10/16/19 25 10/15/2024 URINA LYSIS WITH MICRO pH 5.5 Not Available [facility] [address] [facility] 1, [place], [address], 10/15/2024 10:43:31 10/16/19 25 10/15/2024 URINA LYSIS WITH MICRO pro NEGATI VE Not Available [facility] [address] [facility] 1, [place], [address], 10/15/2024 10:43:31 10/16/19 25 10/15/2024 URINA LYSIS WITH MICRO uro 0.2 E.U./D L Not Available [facility] [address] [facility] 1, [place], [address], 10/15/2024 10:43:31 10/16/19 25 10/15/2024 URINA LYSIS WITH MICRO nit NEGATI VE Not Available [facility] [address] [facility] 1, [place], [address], 10/15/2024 10:43:31 10/16/19 25 10/15/2024 URINA LYSIS WITH MICRO blo NEGATI VE Not Available [facility] [address] [facility], [place], [address], 10/15/2024 10:43:31 10/16/19 25 10/15/2024 URINA LYSIS WITH MICRO steffi NEGATI VE Not Available [facility] [address], [place], [address], 10/15/2024 10:43:31 10/16/19 25 10/15/2024 URINA LYSIS WITH MICRO WBC 0-1 Not Available [facility] [address] [facility] [address] [facility], [place], [address], 10/15/2024 10:43:31 10/16/19 25 10/15/2024 URINA LYSIS WITH MICRO RBC NEGATI VE Not Available [facility] [address], [place], [address], 10/15/2024 10:43:31 10/16/19 25 10/15/2024 URINA LYSIS WITH MICRO epi cells NEGATI VE Not Available [facility] [address] [facility] [address], [place], [address], 10/15/2024 10:43:31 10/16/19 25 10/15/2024 URINA LYSIS WITH MICRO bacteria NEGATI VE Not Available [facility] [address], [place], [address], 10/15/2024 10:43:31 10/16/1910/15/2024 URINA LYSIS WITH MICRO other NG Not Available [facility] [address], [place], [address], 10/15/2024 10:43:31 10/16/19 25 10/15/2024 HBA1C hemaglobin A1C 8.4 4.2-6. 5 high Not Available [facility] [address] [facility], [place], [address], 10/15/2024 10:46:52 10/16/19 25 10/15/2024 CMP (MALE ) glucose 211.0 mg/dL 60.0-9 9.0 high Not Available [facility] [address] [facility] 1, [place], [address], 10/15/2024 11:39:45 10/16/19 25 10/15/2024 CMP (MALE ) BUN (blood urea nitrogen) 14.0 mg/dL 10.0-2 6.0 Not Available [facility] [address] [address], [place], [address], 10/15/2024 11:39:45 10/16/19 25 10/15/2024 CMP (MALE ) creatinine (serum) 0.8 mg/dL 0.4-1. 5 Not Available [facility] [address] [address], [place], [address], 10/15/2024 11:39:45 10/16/19 25 10/15/2024 CMP (MALE ) BUN/creatini ne ratio 17.50 ratio Not Available [facility] [address] [address], [place], [address], 10/15/2024 11:39:45 10/16/19 25 10/15/2024 CMP (MALE ) eGFR calculated 104.8 Not Available [facility] [address] [facility], [place], [address], 10/15/2024 11:39:45 10/16/19 25 10/15/2024 CMP (MALE ) total protein 7.7 g/dL 6.0-8. 5 Not Available [facility] [address] [facility], [place], [address], 10/15/2024 11:39:45 10/16/19 25 10/15/2024 CMP (MALE ) total bilirubin 0.7 mg/dL 0.2-1. 3 Not Available [facility] [address] [facility] 1, [place], [address], 10/15/2024 11:39:45 10/16/19 25 10/15/2024 CMP (MALE ) albumin 4.6 g/dL 3.5-5. 5 Not Available [facility] [address] [facility] 1, [place], [address], 10/15/2024 11:39:45 10/16/19 25 10/15/2024 CMP (MALE ) globulin 3.1 calc Not Available [facility] [address] [address], [place], [address], 10/15/2024 11:39:45 10/16/19 25 10/15/2024 CMP (MALE ) AST (SGOT) 26.0 U/L 0.0-46 .0 Not Available [facility] [address] [facility] 1, [place], [address], 10/15/2024 11:39:45 10/16/19 25 10/15/2024 CMP (MALE ) altv (SGPT) 36.0 U/L 13.0-6 9.0 normal Not Available [facility] [address] [facility] 1, [place], [address], 10/15/2024 11:39:45 10/16/19 25 10/15/2024 CMP (MALE ) A/G ratio 1.5 ratio Not Available [facility] [address] [facility] 1, [place], [address], 10/15/2024 11:39:45 10/16/19 25 10/15/2024 CMP (MALE ) ALP phos 79.0 U/L 30.0-1 40.0 normal Not Available [facility] [address] [facility], [place], [address], 10/15/2024 11:39:45 10/16/19 25 10/15/2024 CMP (MALE ) calcium 9.4 mg/dL 8.4-10 .5 Not Available [facility] [address] [facility] 1, [place], [address], 10/15/2024 11:39:45 10/16/19 25 10/15/2024 CMP (MALE ) sodium 138.0 mmol/ L 136.0- 145.0 Not Available [facility] [address] [facility] 1, [place], [address], 10/15/2024 11:39:45 10/16/19 25 10/15/2024 CMP (MALE ) potassium 4.4 mmol/ L 3.5-5. 1 Not Available [facility] [address] [facility] 1, [place], [address], 10/15/2024 11:39:45 10/16/19 25 10/15/2024 CMP (MALE ) chloride 104.0 mmol/ L 98.0-1 10.0 normal Not Available [facility] [address] [facility] 1, [place], [address], 10/15/2024 11:39:45 10/16/19 25 10/15/2024 CMP (MALE ) C02 26.0 mmol/ L 22.0-3 1.0 Not Available [facility] [address] [facility] 1, [place], [address], 10/15/2024 11:39:45 10/16/19 25 10/15/2024 CMP (MALE ) anion gap 8.0 calc Not Available [facility] [address], [place], [address], 10/15/2024 11:39:45 10/16/19 25 10/15/2024 CMP (MALE ) osmolality 291.2 calc Not Available [facility] [address], [place], [address], 10/15/2024 11:39:45 10/16/19 25 10/16/2024 ALBUM IN, RANDO M URINE W/CRE ATINI NE creatinine, random urine 130 mg/dL 20-320 normal Not Available [address] [address] [place], [address], 10/16/2024 10:03:05 10/16/19 25 10/16/2024 ALBUM IN, RANDO M URINE W/CRE ATINI NE albumin, urine 0.9 mg/dL see note: normal Refer ence Range : Refer ence Range Not estab lishe d Not Available [address] [address] [place], [address], 10/16/2024 10:03:05 10/16/19 25 10/16/2024 ALBUM IN, RANDO M URINE W/CRE ATINI NE albumin/crea tinine ratio, random urine 7 mg/g_ creat <30 normal The ADA defin es abnor malit ies in album in excre tion as follo ws: Album inuri a Categ ory Resul t (mg/g creat inine ) Marian l to Mildl y incre ased <30 Moder ately incre ased 30-29 9 Sever maría incre ased > OR = 300 The ADA recom mends that at least two of three speci mens colle cted withi n a 3-6 month perio d be abnor mal befor e consi joni g a patie nt to be withi n a diagn ostic categ ory. Not Available [facility] [address] [place], [address], 10/16/2024 10:03:05 10/16/19 25 10/16/2024 D-DIM ER, QUANT ITATI VE D-dimer, quantitative 0.19 mcg/m L_feu <0.50 normal [place] salome D-dim er level s are assoc iated with DIC, malig dennis es, infla mmati on, sepsi s, surge ry, traum a, and pregn angeli. A D-dim er resul t less than 0.5 mcg/m L FEU, in conju nctio n with a non-h igh clini juju pre-t est proba bilit y asses sment model , exclu alondra deep vein throm bosis and pulmo nary embol ism. Howev er, since D-dim er value s incre ase with age, the [employer] recom mends an age-a djust ed cut-o ff value in patie nts older than 50. The calcu latio n for an age adjus salome cut-o ff value is age (year s) x 0.01 mcg/m L FEU. For examp le, the cut-o ff for a 70-ye ar-ol d patie nt would be 69 x 0.01 mcg/m L FEU. For addit ional joser puma castaneda refer to http: //anisa Pineda stDia gnost ics.c om/fa q/FAQ 149 (This link is being provi ded for infor shirin nal/e ducat ionniko purpo ses only. ) Not Available [facility] [id number] [place] [address], [address], 10/16/2024 10:03:07 10/16/19 25 10/16/2024 CEA cea <2.0 NG/mL see note: normal Refer ence Range : Non-S moker : <2.5 Smoke r: <5.0 This test was perfo rmed using the View3[employer] ns chemi lumin escen t metho d. Value s obtai lisseth from diffe rent assay metho ds canno t be used inter patel eably . CEA level s, regar dless of value , shoul d not be inter prete d as absol chipewwa evide nce of the prese nce or absen ce of disea se. Not Available [facility] [address] [place], [address], 10/16/2024 10:03:08 10/16/19 25 10/16/2024 PSA, TOTAL PSA, total <0.04 NG/mL < or = 4.00 normal The total PSA value from this assay syste m is stand ardiz ed again st the WHO stand steve. The test resul t will be appro ximat maría 20% lower when semaj red to the equim olar- stand ardiz ed total PSA (Ventura man Coult er). Semaj rison of seria l PSA resul ts shoul d be inter prete d with this fact in mind. This test was perfo rmed using the [employer] chemi lumin escen t metho d. Value s obtai lisseth from diffe rent assay metho ds canno t be used inter patel eably . PSA level s, regar dless of value , shoul d not be inter prete d as absol chipewwa evide nce of the prese nce or absen ce of disea se. Not Available [facility] [address] [place], [address], 10/16/2024 10:03:09 01/25/20 25 01/24/2025 CBC WBC 4.6 x10 4.5-10 .5 Not Available [facility] [address] [facility] 1, [place], [address], 01/24/2025 09:06:42 01/25/20 25 01/24/2025 CBC RBC 5.00 x10 4.30-5 .90 Not Available [facility] [address] [facility] 1, [place], [address], 01/24/2025 09:06:42 01/25/20 25 01/24/2025 CBC HGB 14.9 g/dL 13.5-1 8.0 Not Available [facility] [address], [place], [address], 01/24/2025 09:06:42 01/25/2001/24/2025 CBC HCT 46.4 % 35.0-6 0.0 Not Available [facility] [address] [facility] 1, [place], [address], 01/24/2025 09:06:42 01/25/2001/24/2025 CBC MCV 92.8 fL 80.0-9 9.9 Not Available [facility] [address] [facility] 1, [place], [address], 01/24/2025 09:06:42 01/25/2001/24/2025 CBC MCH 29.8 pg 27.0-3 2.0 Not Available [facility] [address] [facility] 1, [place], [address], 01/24/2025 09:06:42 01/25/2001/24/2025 CBC MCHC 32.1 g/dL 32.0-3 6.0 Not Available [facility] [address] [facility] 1, [place], [address], 01/24/2025 09:06:42 01/25/2001/24/2025 CBC RDW 13.0 % 11.5-1 4.5 Not Available [facility] [address] [facility] 1, [place], [address], 01/24/2025 09:06:42 01/25/2001/24/2025 CBC plt 210.9 x10 150.0- 451.0 Not Available [facility] [address] [facility] 1, [place], [address], 01/24/2025 09:06:42 01/25/2001/24/2025 CBC lymphocytes % 29.9 % 20.0-5 0.0 Not Available [facility] [address] [facility] 1, [place], [address], 01/24/2025 09:06:42 01/25/2001/24/2025 CBC granulcytes % 59.5 % 30.0-7 0.0 Not Available [facility] [address] [facility] 1, [place], [address], 01/24/2025 09:06:42 01/25/2001/24/2025 CBC monocytes % 9.3 % 2.0-16 .0 Not Available [facility] [address] [facility] 1, [place], [address], 01/24/2025 09:06:42 01/25/2001/24/2025 CBC granulcytes# 2.7 x10 Not India ilable [facility] [address] [facility] 1, [place], [address], 01/24/2025 09:06:42 01/25/2001/24/2025 CBC lymphocytes # 1.4 x10 Not Available [facility] [address] [facility] 1, [place], [address], 01/24/2025 09:06:42 01/25/2001/24/2025 CBC monocytes # 0.4 x10 Not Avai lable [facility] [address] [facility], [place], [address], 01/24/2025 09:06:42 01/25/2001/24/2025 HBA1C hemaglobin A1C 6.5 4.2-6. 5 Not Available [facility] [address] [address], [place], [address], 01/24/2025 09:26:33 01/25/202025 CMP (MALE ) glucose 135.0 mg/dL 60.0-9 9.0 high Not Available [facility] [address] [facility] 1, [place], [address], 01/24/2025 09:54:35 01/25/20 25 01/24/2025 CMP (MALE ) BUN (blood urea nitrogen) 16.0 mg/dL 10.0-2 6.0 Not Available [facility] [address] [facility], [place], [address], 01/24/2025 09:54:35 01/25/20 25 01/24/2025 CMP (MALE ) creatinine (serum) 1.1 mg/dL 0.4-1. 5 Not Available [facility] [address] [facility], [place], [address], 01/24/2025 09:54:35 01/25/20 25 01/24/2025 CMP (MALE ) BUN/creatini ne ratio 14.55 ratio Not Available [facility] [address] [facility], [place], [address], 01/24/2025 09:54:35 01/25/20 25 01/24/2025 CMP (MALE ) eGFR calculated 72.6 Not Available [facility] [address] [facility], [place], [address], 01/24/2025 09:54:35 01/25/20 25 01/24/2025 CMP (MALE ) total protein 7.5 g/dL 6.0-8. 5 Not Available [facility] [facility] 1, [place], [address], 01/24/2025 09:54:35 01/25/20 25 01/24/2025 CMP (MALE ) total bilirubin 0.8 mg/dL 0.2-1. 3 Not Available [facility] [address] [facility] 1, [place], [address], 01/24/2025 09:54:35 01/25/20 25 01/24/2025 CMP (MALE ) albumin 4.5 g/dL 3.5-5. 5 Not Available [facility] [address] [facility] 1, [place], [address], 01/24/2025 09:54:35 01/25/20 25 01/24/2025 CMP (MALE ) globulin 3.0 calc Not Available [facility] [address] [facility] 1, [place], [address], 01/24/2025 09:54:35 01/25/20 25 01/24/2025 CMP (MALE ) AST (SGOT) 23.0 U/L 0.0-46 .0 Not Available [facility] [address] [facility] 1, [place], [address], 01/24/2025 09:54:35 01/25/20 25 01/24/2025 CMP (MALE ) altv (SGPT) 23.0 U/L 13.0-6 9.0 normal Not Available [facility] [address] [facility] 1, [place], [address], 01/24/2025 09:54:35 01/25/20 25 01/24/2025 CMP (MALE ) A/G ratio 1.5 ratio Not Available [facility] [address] [facility] [address] [facility] [address], [place], [address], 01/24/2025 09:54:35 01/25/20 25 01/24/2025 CMP (MALE ) ALP phos 56.0 U/L 30.0-1 40.0 normal Not Available [facility] [address] [facility] [address] [address], [place], [address], 01/24/2025 09:54:35 01/25/20 25 01/24/2025 CMP (MALE ) calcium 9.2 mg/dL 8.4-10 .5 Not Available [facility] [address] [facility] [address], [place], [address], 01/24/2025 09:54:35 01/25/20 25 01/24/2025 CMP (MALE ) sodium 139.0 mmol/ L 136.0- 145.0 Not Available [facility] [address] [facility] [facility], [place], [address], 01/24/2025 09:54:35 01/25/2001/24/2025 CMP (MALE ) potassium 4.4 mmol/ L 3.5-5. 1 Not Available [facility] [address] [facility], [place], [address], 01/24/2025 09:54:35 01/25/20 25 01/24/2025 CMP (MALE ) chloride 104.0 mmol/ L 98.0-1 10.0 normal Not Available [facility] [address] [facility] 1, [place], [address], 01/24/2025 09:54:35 01/25/20 25 01/24/2025 CMP (MALE ) C02 27.0 mmol/ L 22.0-3 1.0 Not Available [facility] [address] [place] [address] [facility], [place], [address], 01/24/2025 09:54:35 01/25/20 25 01/24/2025 CMP (MALE ) anion gap 8.0 calc Not Available [facility] [address] [place] [facility], [place], [address], 01/24/2025 09:54:35 01/25/20 25 01/24/2025 CMP (MALE ) osmolality 290.1 calc Not Available [facility] [address] [facility] [address], [place], [address], 01/24/2025 09:54:35 10/17/19 25 10/15/2024 US, jeffy xeliel s, upper extre mity No observ ation record ed. [email or web address] [facility] [address] [place], [address], 10/25/2024 08:12:52 Result Notes None recorded. 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 3 08:21:35 Essential hypertensi on 47140012 Active 2022 [facility] 5 14:28:24 Type 2 diabetes mellitus 19513625 Active 2022 [facility] 3 08:21:47 History of malignant neoplasm of colon 335538151 Active 2022 Yaniv Feliz MD [address] [place] [address], [phone] 5, [facility] 3 09:03:42 Deep venous thrombosis of upper extremity 282755544 Active 2023 [facility] 4 08:57:20 Malignant neoplasm of prostate 978952570 Active 2023 Yaniv Feliz MD [address] [place] [address], [phone] 5, [facility] 4 09:59:26 Blood in urine 55702208 Active 2023 [facility] [place] 13:21:55 History of malignant neoplasm of rectum 137970805 Active 2024 Yaniv Feliz MD [address] [place] [address], [address] 5, [facility] [place] 09:48:07 Problem Notes None recorded. Procedures Surgical History Date Name Laterality Status Provider Name and Address Organization Details Recorded Time 09/13/19 24 prostatectomy completed [facility] 09/21/2023 16:30:15 07/12/19 24 core needle biopsy completed [facility]autam [facility] 08/09/2023 08:54:28 04/14/20 23 Colonoscopy completed [facility] 05/31/2023 11:14:06 07/08/19 18 excision of malignant tumor [facility] 08:23:44 [facility] 08:22:14 Imaging Results None recorded. Procedure [...] refills; Recorded 04/22/20 22 7:24AM by Yaniv Feliz MD, Office Visit; Refill Quantity : 60; [...] Details Last Updated DateTime 5 176.53 cm 32 kg/m2 77730.3 2 g 97.5 [degF] 64 /min 96 % 150/88 mm[Hg] [facility] 5 09:16:22 Date Recorded Body height Body mass index (BMI) Body weight Body temperature Heart rate Oxygen saturation Systolic And Diastolic Provider Name and Address Organization Details Last Updated DateTime 5 176.53 cm 31.9 kg/m2 60311.7 3 g 97.6 [degF] 69 /min 96 % 134/84 mm[Hg] [facility] 5 08:07:03 Date Recorded Body height Body mass index (BMI) Body weight Body temperature Respiratory rate Oxygen saturation Heart rate Systolic And Diastolic Provider Name and Address Organization Details Last Updated DateTime 5 176.53 cm 31.7 kg/m2 80326.1 4 g 96.9 [degF] 17 /min 97 % 68 /min 140/84 mm[Hg] [facility] 5 08:16:54 Date Recorded Body height Body mass index (BMI) Body weight Body temperature Heart rate Oxygen saturation Systolic And Diastolic Provider Name and Address Organization Details Last Updated DateTime 5 176.53 cm 30.3 kg/m2 87703.2 1 g 97.4 [degF] 66 /min 99 % 130/72 mm[Hg] [facility] 5 08:08:29 Social History Question Answer Notes LastModified by Organizat [employer] Details LastModified Time Tobacco Smoking Status Never Smoker [facility] 11/18/2022 08:20:55 What Was The Date Of Your Most Recent Tobacco Screening? 10/15/2024 Information not available 10/15/2024 Sex: Unknown Functional Status Question Answer Note LastModified by Organizat ion Details LastModified Time How many times [...] is your level of alcohol consumption? Occasional [email or web address] Information not available 11/18/2022 Mental Status None recorded. Family History Relationship Description Onset Age of this Age Resolved Age Notes LastModified by Organization Details LastModified Time Father Malignant neoplasm of liver Not available 11/18 08:20:18 Father Diabetes mellitus [email or web address] Not available 11/18 08:20:26 Father Coronary atherosclero sis Not available 11/18 08:20:40 Medical History No medical history recorded. Immunizations Vaccine Type Date Status Note Provider Nam e and Address Organization Details Recorded Time zoster recombinant 9 completed [facility] 11/18/2022 08:19:35 zoster recombinant 8 completed [facility] 11/18/2022 08:19:35 COVID-19 vaccine, vector-nr, rS-Ad26, PF, 0.5 mL 1 completed [facility] [place] [facility], [place]. 11/18/2022 08:19:35 zoster live 9 completed Not Available [facility] 06/13/2023 14:42:48 zoster live 8 completed Not Available [facility] 06/13/2023 14:42:48 Influenza, split virus, trivalent, preservative 8 completed Not Available [facility] 06/13/2023 14:42:48 Past Encounters Encounter ID Performer Location Encounter Start Date Encounter Closed Date Diagnosis/Indication Diagnosis SNOMED-CT Code Diagnosis ICD10 Code Diagnosis IMO Codes Diagnosis Note [id number] Yaniv Feliz MD [facility] ([facility]) [address] [place] [phone] 5 11/18/2022 08:09:44 11/18/2022 09:18:08 Diabetes mellitus 22149228 E11.9 6 months f/u psa, lipid, cmp, microalbum in/cr ratio, a1c, cbc prior History of malignant neoplasm of colon 791576603 Z85.282 [id number] Yaniv Feliz MD [facility] ([facility]) [address] [place] [address] [phone] 5 04/15/2023 12:21:26 04/15/2023 14:50:44 COVID-19 439903307 U07.1 [id number] Yaniv Feliz MD [facility] ([facility]) [address] [place] [address] [phone] 5 06/13/2023 14:42:27 06/13/2023 18:13:28 Acute stress disorder 10343338 F43.0 Depressive disorder 3548 9007 F32.A Type 2 marybeth betes mellitus 59007112 E11.9 due to his resection he really doesn't tolerate metformin. he has very rapid transit. he may do better with glp-1. i gave him a sample of ozempic. we discussed risks and benefits, of glp-1 medication at great length. i discussed what pancreatit is is, how severe it can be and the risk of it with these medication s. we discussed signs and symptoms to watch for. we discussed risk of medullary thyroid cancer. we discussed common side effects. we discussed the risk of dm, obesity, and the risk of not taking the medication . we discussed the potential benefits of the medication including risk reduction of cardiovasc ular , better sugar control, and weight loss among others. [id number] Yaniv Feliz MD [facility] ([facility]) [address] [place] [address] [phone] 5 09/19/2023 11:55:01 09/19/2023 17:39:26 Pain in left arm 419102021 M79.602 Swelling o f upper limb 420111554 R22.30 Deep venou s thrombosis of upper extremity 571801651 I82.629 he will go to ER if chest pain/dyspn ea right away. he is aware he could develop a PE which could be suddenly life threatenin g. he will call if any concerns or questions. he will watch for signs of bleeding epecially from the prostate. [id number] Yaniv Feliz MD [facility] ([facility]) [address] [place] [address] [phone] 5 09/19/2023 13:28:52 09/19/2023 17:40:36 [id number] Yaniv Feliz MD [facility] ([facility]) [address] [place] [address] [phone] 5 09/26/2023 08:41:53 09/26/2023 10:54:37 Deep venous thrombosis of upper extremity 080739561 I82.629 no visible blood in urine despite the blood thinner. he was able to get his catheter out. he is urinating well enough. Malignant neoplasm of prostate 290131466 C61 [id number] Yaniv Feliz MD [facility] ([facility]) [address] [place] [address] [phone] 5 10/25/2023 08:07:03 10/25/2023 09:52:46 Malignant neoplasm of prostate 155137068 C61 [id number] Yaniv Feliz MD [facility] ([facility]) [address] [place] [address] [phone] 5 11/04/2023 13:13:27 11/04/2023 14:12:49 Blood in urine 82947467 R31.9 fax labs to his urologist. [id number] Yaniv Feliz MD [facility] ([facility]) [address] [place] [address] 99076-311 5 02/17/2024 08:40:23 02/17/2024 10:53:34 Deep venous thrombosis of upper extremity 681064793 I82.629 no visible blood in urine despite the blood thinner. he was able to get his catheter out. he is urinating well enough. Uncontroll ed type 2 diabetes mellitus 287371977 E11.649 Malignant neoplasm of prostate 705273521 C61 [id number] Yaniv Feliz MD [facility] ([facility]) [address] [place] [address] [phone] 5 06/07/2024 14:51:36 06/08/2024 09:52:06 Deep venous thrombosis of upper extremity 946779326 I82.629 no visible blood in urine despite the blood thinner. he was able to get his catheter out. he is urinating well enough. Malignant neoplasm of prostate 133770965 C61 Binocular diplopia 15539 5008 H53.2 he had one brief spell while driving a long distance roughly weeks ago. no other neuro sx's nothing before or since. I will ask for an ophthalmol ogist evaluation . [id number] Yaniv Feliz MD [facility] ([facility]) [address] [place] [address] [phone] 5 10/15/2024 09:07:07 10/16/2024 09:52:38 Essential hypertension 64650937 I10 Type 2 marybeth betes mellitus 07015262 E11.9 due to his resection he really doesn't tolerate metformin. he has very rapid transit. he may do better with glp-1. i gave him a sample of ozempic. we discussed risks and benefits, of glp-1 medication at great length. i discussed what pancreatit is is, how severe it can be and the risk of it with these medication s. we discussed signs and symptoms to watch for. we discussed risk of medullary thyroid cancer. we discussed common side effects. we discussed the risk of dm, obesity, and the risk of not taking the medication . we discussed the potential benefits of the medication including risk reduction of cardiovasc ular , better sugar control, and weight loss among others. Deep venou s thrombosis of upper extremity 269194014 I82.629 He was to meet with hematology /oncology to discuss anticoagul ation fdc due to unusual size and location of his extensive dvt and hx of malignancy . I advised continuing anticoagul ation at this time. Malignant neoplasm of prostate 781447916 C61 new onset hematuria lab and urine today. needs f/u with urology. History of malignant neoplasm of rectum 622431906 Z85.444 [id number] due for recheck in 1.5 years 04/14/2023 he is aware and will schedule at [facility] Pain of le ft upper arm 5554718090 96758 M79.694 [id number] Ganga hematuria 05236595 5 R31.0 961762 [id number] Yaniv Feliz MD [facility] ([facility]) [address] [place] [address] [phone] 5 10/15/2024 13:24:28 10/16/2024 08:54:15 [id number] Yaniv Feliz MD [facility] ([facility]) [address] [place] [address] [phone] 5 10/25/2024 08:00:31 10/25/2024 12:13:22 Type 2 diabetes mellitus 33111426 E11.9 [id number] previous notes. due to his resection he really doesn't tolerate metformin. he has very rapid transit. he may do better with glp-1. i gave him a sample of ozempic. we discussed risks and benefits, of glp-1 medication at great length. i discussed what pancreatit is is, how severe it can be and the risk of it with these medication s. we discussed signs and symptoms to watch for. we discussed risk of medullary thyroid cancer. we discussed common side effects. we discussed the risk of dm, obesity, and the risk of not taking the medication . we discussed the potential benefits of the medication including risk reduction of cardiovasc ular , better sugar control, and weight loss among others. Physical examination 588 0005 Z00.00 [id number] has had an eye exam. this year. [id number] Yaniv Feliz MD [facility] ([facility]) [address] [place] [address] [phone] 5 11/22/2024 08:03:06 11/22/2024 09:40:33 Type 2 diabetes mellitus 79514396 E11.9 [id number] Yaniv Feliz MD [facility] ([facility]) [address] [place] [address] 01/24/2025 08:02:44 01/25/2025 11:02:33 Essential hypertension 66674092 I10 Type 2 marybeth betes mellitus 47363364 E11.9 [id number] Yaniv Feliz MD [facility] ([facility]) [address] [place] [address] 01/25/2025 08:01:33 01/25/2025 08:27:23 Essential hypertension 66573552 I10 monitor HR and bp and call with results. Deep venou s thrombosis of upper extremity 483302727 I82.629 he will meet with oncology to reassess next month. they are going to repeat the u/s of his arm apparently . Type 2 marybeth betes mellitus 65507342 E11.9 History of malignant neoplasm of rectum 795992234 Z85.487 [id number] due for recheck in 1.5 years 04/14/2023 he is aware and will schedule at [facility] Malignant neoplasm of prostate 549763058 C61 new onset hematuria resolved. he continues to follow with urology. Health Concerns Section Related Observation LastModified by Organization Detai ls LastModified Time None Recorded Concern Status LastModified by Organization Details LastModified Time None Recorded Advance Directives Directive None Recorded Payers Insurance Date Sequence Insurance Name Policy Number Policy Peña Covered Member ID Peña Member ID Guarantor Name 01/29/2025 1 [place] [id number] Pedro Soliman [id number] DT Pedro Soliman Notes Date Note Type Note Provider Name and Address Organization Details Recorded Time 5 text/html Generic HPI TemplateReported by Patientthis weekend he noted that he began having pain in the left bicep area. this is where he had his previous dvt Note from last visit: Pedro had a pretty massive upper extremity DVT from jugular to the radial head dx by this provider on September 182023. He had undergone prostatectomy on 09/16/2023. this was for prostate cancer. he at last check was still undetectable from a PSA standpoint. this was his first known venous thrombotic incident. He has been having pain in his left arm where he had the blood clot. Yaniv Feliz MD [address] [place], [address], [facility] 10/15/2024 10:13:14 5 text/html DiabetesReported by PatientHPIFor control, patient reportshemoglobin a1c has been 8-9 (8.4). For associated symptoms, patient reportsno headaches,no confusion,no increased thirst,no increased appetite,no increased urination,no numbness of feet,no calluses on feet, andno paresthesias.Pt is here today to f/u on labs. Annual WellnessReported by Patient Yaniv Feliz MD [address] [place], [address], [facility] 10/25/2024 08:55:22 5 text/html DiabetesReported by PatientHPIFor control, patient reportshemoglobin a1c has been 8-9 (8.4). For associated symptoms, patient reportsno headaches,no confusion,no increased thirst,no increased appetite,no increased urination,no numbness of feet,no calluses on feet, andno paresthesias. 1 month f/u Patient states he's doing well on the Trulicity. Lost some weight he is tolerating the mecication well. no gi or other symptoms. Yaniv Feliz MD [address] [place], [address], [facility] 11/22/2024 08:48:10 5 text/html DiabetesReported by PatientHPIFor duration, patient [...] up).ROS as noted in the HPI Yaniv Feliz MD [address] [place] [address], [phone], [facility] 01/25/2025 08:24:36
--- OUTSIDE RECORDS SUMMARY | 2025-03-30 23:41 | XMS_ITS | Clinical Summary ---
Author Organization [facility] Address [address] Attn: Epic Prelude ADT DESIRAE LORENZANA [address] Care Team Providers Care Campaign Consultant Name Role Phone Aniya Oliveira MD Primary Care Provider [phone] Allergies No known active allergies Medications cyclobenzaprine (FLEXERIL) 10 mg tablet Take 10 mg by mouth 3 times daily as needed . 05/28/2017 Active lisinopriL (PRINIVIL) 30 mg tablet 30 mg daily . 07/12/2017 Active Active Problems Problem Noted Date Diagnosed Date Rectal adenocarcinoma 08/02/2017 Cancer Staging:Clinical: Unsigned Pathologic stage from 08/02/2017: pT3 - Signed by Shannen Fung MD on 08/02/2017 Lt Rib Fractures 02/25/2009 Lt Acromioclavicular Separation 02/25/2009 Pulmonary Contusions 02/25/2009 Lt Scapular Spine Fracture 02/25/2009 Abrasions of multiple sites 02/25/2009 Crush Injury to Chest 02/25/2009 Lt Acromium Fracture 02/25/2009 Social History Tobacco Use Types Packs/Day Years Used Date Smoking Tobacco: Never Smokeless Tobacco: Never Alcohol Use Standard Drinks/Week Comments No 0 (1 standard drink = 0.6 oz pur e alcohol) Sex and Gender Information Value Date Recorded Sex Assigned at Not on file 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
[2025-03-30 23:45] VITALS: BP 196/115; PULSE 79; RESP 14; TEMP 37; O2SAT 98; BMI 30.1
--- NOTE | 2025-03-30 23:45 | ECG_ITS ---
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 Measurements Intervals [place] Rate: 74 P: 51 [place]: 191 QRS: 8 QRSD: 98 T: 51 QT: 372 QTc: 413 Interpretive Statements SINUS RHYTHM POSSIBLE RIGHT VENTRICULAR CONDUCTION DELAY [RSR (QR) IN V1/V2] No previous ECG available for comparison Electronically Signed On 03-31-2025 17:37:46 FIELD INVESTIGATOR by Cody Wooten M.D. [email or web address]
[2025-03-30 23:57] VITALS: BP 196/115; PULSE 79; RESP 14; TEMP 37; O2SAT 98
[2025-03-31 00:32] VITALS: BP 157/97
[2025-03-31] MEDS: hyDRALAzine 20 mg/mL INJ 1 mL 10 MG IVP (00:32)
[2025-03-31 00:47] LABS: Troponin(5th) Baseline 8 ng/L (0-15)
[2025-03-31 00:50] LABS: Hematocrit 45.1 % (37-53); Hemoglobin 14.90 g/dL (11.27-16.99); Mean Corpuscular HGB Conc 33.0 g/dL (30-55); Mean Corpuscular Hemoglobin 29.5 pg (27-33); Mean Corpuscular Volume 89.3 fl (82-101); Nucleated Red Blood Cells % 0 %; Platelet Count 229 10^3/cmm (157-399); Red Blood Count 5.05 10^6/uL (3.85-5.65); White Blood Count 5.38 10^3/uL (3.29-11.43)
[2025-03-31 00:54] LABS: Alanine Aminotransferase 16 U/L (0-41); Albumin Level 4.8 g/dL (3.5-5.2); Alkaline Phosphatase 66 U/L (40-130); Anion Gap 14.2 (5-19); Aspartate Amino Transferase 14 U/L (0-40); Blood Urea Nitrogen 13 mg/dL (8-23); Calcium 9.6 mg/dL (8.5-10.5); Carbon Dioxide 28 mmol/L (22-29); Chloride 100 mmol/L (98-107); Creatinine Clr Calc Pharmacy 91.0018; Globulin 2.7 g/dL (1.3-4.6); Glucose 125 mg/dL (65-115); Magnesium 2.1 mg/dL (1.7-2.3); NT Pro B Type Natriuretic Pept < 36 pg/mL (0-125); Osmolality Calculated 288 mOsm/kg (285-295); Potassium 4.2 mmol/L (3.5-5.1); Sodium 138 mmol/L (136-145); Total Protein 7.5 g/dL (6.6-8.7)
[2025-03-31 02:02] VITALS: BP 151/98; PULSE 80; O2SAT 98
[2025-03-31 02:03] LABS: Troponin 5 2HR 6.19 ng/L (0-15)
--- NOTE | 2025-03-31 02:19 | W.ED.SOB ---
HPI - SOB/Dyspnea General: Chief Complaint: Shortness of Breath/Dyspnea Stated Complaint: HIgh BP Sob hard to breathe Time Seen by Provider: 03/31/25 00:04 History of Present Illness: HPI Narrative: Patient is an 59yo male with a history of hypertension, type 2 diabetes, prior blood clot, and two episodes of cancer who presents with acute worsening of blood pressure control. He reports that his blood pressure has been gradually increasing over the past month despite an increase in his lisinopril dose from 30 mg to 40 mg, with recent home readings consistently in the 150s/90s and tonight acutely rising to 180/114. He experienced chest tightness and increased ringing in his ears. He denies any focal neurological deficits, speech changes, limb weakness, or pain. He had a mild cold about a week ago, took cold medicine (Sudafed), but symptoms resolved. He denies smoking and reports good control of cholesterol and diabetes recently. He takes Eliquis for a persistent left arm blood clot following surgery a year and a half ago, with recent ultrasound showing improvement but not complete resolution. He denies any symptoms currently. Associated symptoms: Deny abdominal pain, chest pain, fever(s) or palpitations Related Data Home Medications ?Medication ?Instructions ?Recorded ?Confirmed apixaban 5 mg tablet (Eliquis) 5 mg PO BID 10/12/23 03/07/25 fluoxetine 10 mg capsule 10 mg PO DAILY 10/12/23 03/07/25 dulaglutide 0.75 mg/0.5 mL mg SUBCUT .weekly 11/08/24 03/07/25 subcutaneous pen injector (Trulicity) lisinopril 30 mg tablet 40 mg PO QDAY 03/07/25 Previous Rx's ?Medication ?Instructions ?Recorded amlodipine 5 mg tablet 5 mg PO DAILY #30 tabs 03/31/25 Allergies Allergy/AdvReac Type Severity Reaction Status Date / Time No Known Allergies Allergy Verified 03/07/25 13:12 Review of Systems General: Reports: 10 or more systems reviewed and unremarkable except in HPI and below Const: Denies: fever(s) or chills Eyes: Denies: change in vision or eye discharge Card: Denies: chest pain, palpitations or swelling of feet/ankles Resp: Denies: dyspnea or productive cough GI: Denies: abdominal pain or diarrhea : Denies: difficulty urinating Musc: Denies: neck pain or back pain Skin/Breast: Denies: rash or jaundice Neuro: Denies: headache(s), numbness in extremities or weakness in extremities Haja/Lymph: Denies: easy bruising or easy bleeding PFSH ED PFSH: Medical History (Updated 03/31/25 @ 02:16 by Rick Mcbride DO) Depression Deep vein thrombosis of left upper extremity Prostate cancer Rectal cancer Hypertension Surgical History History of radical prostatectomy (09/13/23) History of cholecystectomy Status post surgery (08/01/17) transanal excision of rectal cancer History of colonoscopy with polypectomy 04/2020 removed 02/16/2021 Family History Father Lung cancer Social History Smoking and tobacco/nicotine status: never used tobacco/nicotine Alcohol intake: current Alcohol intake frequency: holidays/special occasions only Physical Exam Narrative: EXAM NARRATIVE: Patient overall well-appearing, afebrile and vital signs stable on arrival, no acute distress. head normocephalic, PERRL, moist mucous membranes, no cervical LAD. breathing comfortably on RA, saturating well, clear BL and no adventitious breath sounds, able to speak in full sentences without getting SOB, no signs of respiratory distress. NSR with no murmurs, no leg swelling, 2+ pulses throughout, good cap refill. Abdomen soft, nontender, nondistended, no localizing or peritonitic signs, no overlying skin changes, no CVA ttp. 4 extremities without apparent deformity or injury. GCS 15, AAOx4, able to answer questions and follow commands appropriately, moving all 4 extremities symmetrically and spontaneoulsy. Normal mood and affect. Course Vital Signs: Vital signs: Vital Signs Temperature 98.6 F 03/30/25 23:57 Pulse Rate 80 03/31/25 02:02 Respiratory Rate 14 03/30/25 23:57 Blood Pressure 151/98 03/31/25 02:02 Pulse Oximetry 98 03/31/25 02:02 Oxygen Delivery Me thod Room Air 03/31/25 02:02 MDM - SOB/Dyspnea Medical Decision Making -ddx: HTN urgency vs emergency, ACS, dysrythmia, anxiety, URI, PNA -patient overall well appearing, seemingly with subacute worsening of his essential HTN at home, worsened over the last day with no obvious triggers, no concerning sx with this to make it HTN emergency, due to patients history and subacute worsening of pressures, shared decision making with patient and family and will give Hydralazine IV and start him on a second line BP med if successfully lowered and do a cardiac esparza to look for any end organ damage. -one dose ofhydralazine lowered patient nicely into low 150s, still asx on exam, did not want to drop him anymore so was content with that number and will have him start on Amlodipine 5mg and keep a BP log and have him fu with his PCP for further recs on his BP regimen. Otherwise labs reassuring, troponins negative with a flat delta, EKG with no cocnerning ischemic changes, no severe signs of inflammation, no severe electrolyte abnl, no LUIS. and so with patient without symtptoms, reassured after a negative ED esparza and lower of his BP, patient was able to be discahrged in stable condition with family at bedside and strict return precautions given. Lab Data 03/30/25 23:56 03/30/25 23:56 Labs/Radiology: Laboratory Results WBC 5.38 10^3/uL (3.29-11.43) 03/30/25 23:56 RBC 5.05 10^6/uL (3.85-5.65) 03/30/25 23:56 Hgb 14.90 g/dL (11.27-16.99) 03/30/25 23:56 Hct 45.1 % (37-53) 03/30/25 23:56 MCV 89.3 fl (82-101) 03/30/25 23:56 MCH 29.5 pg (27-33) 03/30/25 23:56 MCHC 33.0 g/dL (30-55) 03/30/25 23:56 RDW 12.8 % (12.1-15.1) 03/30/25 23:56 Plt Count 229 10^3/cmm (157-399) 03/30/25 23:56 MPV 9.6 fL (7.4-10.4) 03/30/25 23:56 Neut % (Auto) 61.8 % 03/30/25 23:56 Lymph % (Auto) 25.7 % 03/30/25 23:56 Gordon % (Auto) 9.9 % 03/30/25 23:56 Eos % (Auto) 1.7 % 03/30/25 23:56 Baso % (Auto) 0.7 % 03/30/25 23:56 Neut # (Auto) 3.33 10^3/uL (1.8-7.7) 03/30/25 23:56 Lymph # (Auto) 1.4 10^3/uL (0.8-4.8) 03/30/25 23:56 Gordon # (Auto) 0.5 10^3/uL (0.2-0.9) 03/30/25 23:56 Eos # (Auto) 0.1 10^3/uL (0.0-0.8) 03/30/25 23:56 Baso # (Auto) 0.0 10^3/uL (0.0-0.1) 03/30/25 23:56 Nucleated RBC % (auto) 0 % 03/30/25 23:56 Nucleated RBCs # 0.0 /100WBC 03/30/25 23:56 Sodium 138 mmol/L (136-145) 03/30/25 23:56 Potassium 4.2 mmol/L (3.5-5.1) 03/30/25 23:56 Chloride 100 mmol/L (98-107) 03/30/25 23:56 Carbon Dioxide 28 mmol/L (22-29) 03/30/25 23:56 Anion Gap 14.2 (5-19) 03/30/25 23:56 BUN 13 mg/dL (8-23) 03/30/25 23:56 Creatinine 1.0 mg/dL (0.7-1.2) 03/30/25 23:56 GFR Calculation 76.2 mL/min (90-130) L 03/30/25 23:56 Glucose 125 mg/dL (65-115) H 03/30/25 23:56 Calculated Osmolality 288 mOsm/kg (285-295) 03/30/25 23:56 Calcium 9.6 mg/dL (8.5-10.5) 03/30/25 23:56 Phosphorus 3.6 mg/dL (2.5-4.5) 03/30/25 23:56 Magnesium 2.1 mg/dL (1.7-2.3) 03/30/25 23:56 Total Bilirubin 0.3 mg/dL (0.15-1.2) 03/30/25 23:56 AST 14 U/L (0-40) 03/30/25 23:56 ALT 16 U/L (0-41) 03/30/25 23:56 Alkaline Phosphatase 66 U/L (40-130) 03/30/25 23:56 Troponin T Baseline 8 ng/L (0-15) 03/30/25 23:56 Troponin T 120 Minute 6.19 ng/L (0-15) 03/31/25 01:42 Delta Troponin T -1.81 ABS# (0-10) L 03/31/25 01:42 NT-Pro-B Natriuret Pep < 36 pg/mL (0-125) 03/30/25 23:56 Total Protein 7.5 g/dL (6.6-8.7) 03/30/25 23:56 Albumin 4.8 g/dL (3.5-5.2) 03/30/25 23:56 Globulin 2.7 g/dL (1.3-4.6) 03/30/25 23:56 TSH 3.92 uIU/mL (0.27-4.20) 03/30/25 23:56 Free T4 1.05 ng/dL (0.82-1.77) 03/30/25 23:56 All radiology interpretation(s) finalized by discharge Discharge Plan Discharge Patient Disposition: Home Clinical Impression: Hypertensive urgency Condition: Stable Prescriptions: New amlodipine 5 mg tablet 5 mg PO DAILY Qty: 30 0RF No Action fluoxetine 10 mg capsule 10 mg PO DAILY Eliquis 5 mg tablet 5 mg PO BID Trulicity 0.75 mg/0.5 mL pen injector SUBCUT .weekly lisinopril 30 mg tablet 40 mg PO QDAY Discharge Orders: Discharge ED (Routine); Ordered 03/31/25 Ordered By: Rick Mcbride Referrals: Scott Feliz MD [Primary Care Provider, [facility]] Discharge Diet: Usual diet Discharge Activity: Resume usual activity Patient Instructions: Opioid Safety, Pain Management, Patient Portal & Jose Instructions Activity Restrictions/Additional Instructions: You were seen for your high blood pressure, you were evaluated with labs and an EKG which were ultimately reassuring, your blood pressure improved with a one-time dose of IV medication and you were deemed stable to be discharged home. For further management of your blood pressure, start taking the amlodipine 5 mg daily starting tomorrow and keep a blood pressure log at least twice daily, this medication will not take effect for 24 hours. Make a follow-up appointment with your primary care physician in 1 to 2 weeks time to further discuss this medication and what your blood pressures have been doing on it to see if you should continue it indefinitely. Return to the ED with severe increases in your blood pressure, headaches, continuous vomiting, fevers, any other emergent concerns. Print Language: Monegasque Coding Level of Care Code ED Smocking Machine Operator for Kimi Sandoval
[2025-03-31 02:26] LABS: Troponin 5 2HR Delta -1.81 ABS# (0-10)
[2025-04-01 14:26] LABS: Free T4 Free Thyroxine 1.05 ng/dL (0.82-1.77); Thyroid Stimulating Hormone 3.92 uIU/mL (0.27-4.20)
== END 2025-03-31 02:34 | disposition home or self-care (01) ==
PROVIDERS: Emergency Provider Student in an Organized Health Care Education/Training Program; PCP Family Medicine
DX: I16.0 Hypertensive urgency (principal); Z79.01 Long term (current) use of anticoagulants; Z79.85 Long-term (current) use of injectable non-insulin antidiabetic drugs; I10 Essential (primary) hypertension; Z85.048 Personal history of other malignant neoplasm of rectum, rectosigmoid junction, and anus; Z85.46 Personal history of malignant neoplasm of prostate; E11.9 Type 2 diabetes mellitus without complications
CPT/HCPCS: 36415; 80053; 83735; 83880; 84100; 84439; 84443; 84484; 85025; 93005; 96374; 99284; J0360